=== PATIENT | male | born 1945 | race Caucasian/White ===

== ENCOUNTER → 2025-02-21 | Outpatient (CLI) | payer MEDICARE, SELFPAY ==
--- OUTSIDE RECORDS SUMMARY | 2025-02-21 07:26 | XMS RPT_ITS | CCD ---
Author Organization [facility] Care Team Providers Care Vascular Technologist Sonographer Name Role Phone Deb, April Primary Care Unavailable Stencel, April Attending Unavailable Stencel, April Primary Care Unavailable Stencel, April Admitting Unavailable Stencel, April Attending Unavailable Stencel, April Primary Care Unavailable Ohsie-Bajor, Miriam Admitting Unavailable Ohsie-Bajor, Miriam Attending Unavailable Stencel, April Primary Care Unavailable Stencel, April Attending Unavailable Stencel, April Primary Care Unavailable Stencel, April Admitting Unavailable Stencel, April Attending Unavailable Stencel, April Primary Care Unavailable Stencel, April Attending Unavailable Stencel, April Primary Care Unavailable Stencel, April Attending Unavailable Stencel, April Primary Care Unavailable Stencel, April Unavailable Unavailable Stencel, April West Unavailable Unavailable Stencel, April Walker Primary Care Provider DAVE BRYANT Attending Unavailable STENCEL, APRIL WALKER Primary Care Unavailab le DAVE BRYANT Admitting Unavailable DAVE BRYANT Referring Unavailable STENCEL, APRIL WALKER Primary Care Unavailab le Stensamuel, April Walker Primary Care Provider [phone] StenApril baker Unavailable [phone] Unavailable Unavailable Unavailable Unavailable April Boyd MD Primary Care Provider April Boyd MD Unavailable Deb, Dr. April Walker Primary Care Unava ilable Stencel, Dr. April Walker Attending Unava ilable Stencel, Dr. April Walker Referring Unava ilable Stencel, Dr. April Walker Referring Unava ilable Stencel, Dr. April Walker Attending Unava ilable Stencel, Dr. April Walker Primary Care Unava ilable Stencel, Dr. April Walker Primary Care Unava ilable Gholam, Jose Attending Unavailable Deb, Dr. April Walker Referring Sandeeva APRIL Paz Primary Care Unavailable APRIL BOYD Primary Care Unavailable April Boyd MD Unavailable April Boyd MD Primary Care Provider [phone] April Boyd MD Unavailable [phone] April Boyd MD Primary Care Provider [phone] APRIL BOYD Primary Care Unavailable PASHA ZABALA Attending Unavailable DEB, APRIL West Attending Unavailable DEB, APRIL West Referring Unavailable APRIL BOYD Primary Care Unavailable APRIL BOYD Attending Unavailable APRIL BOYD Referring Unavailable APRIL BOYD Primary Care Unavailable April Boyd Referring Unavailable April Boyd Unavailable April Boyd Primary Care Unavailable Allergies Allergy Classification Reported Allergen(s) Allergy Type Date of Onset Reaction(s) Facility Angiotensin Converting Enzyme (JUSTIN) Inhibitors (1 source) Lisinopril; Translations: [lisinopril] Drug All[facility] Work Phone: (15 sources) Lisinopril; Translations: [lisinopril] Drug Allergy 11-23-[address] [facility] Repository Medications Current Medications Medication Drug Class(es) Dates Sig (Normalized) Sig (Original) aspirin 325 mg oral tablet (14 sources) Platelet Aggregation Inhibitor, Nonsteroidal Anti-inflammatory Drug take 1 tablet by mouth once daily aspirin 325 mg tablet Take 1 tablet (325 mg) by mouth once daily. Active azithromycin 250 mg oral tablet (2 sources) Macrolide Antimicrobial Start: 01-06-20 End: 02-07-20 25 azithromycin (Zithromax Z-Adan) 250 mg tablet Indications: Acute bronchitis, unspecified organism Take 2 tablets by mouth at once on day 1, then 1 tablet once a day on days 2-5. Take with a meal. 6 tablet 01/05/2025 02/06/2025 Discontinued (Therapy completed) hydroCHLOROthiazide 25 mg oral tablet (16 sources) Thiazide Diuretic Start: 11-24-19 End: 08-09-19 26 take 1 tablet by mouth once daily hydroCHLOROthiazide (HYDRODiuril) 25 mg tablet Indications: Primary hypertension Take 1 tablet (25 mg) by mouth once daily. 90 tablet 3 08/09/2024 08/09/2025 Active mupirocin 0.02 mg/mg topical ointment (1 source) RNA Synthetase Inhibitor Antibacterial Start: 01-06-20 End: 01-16-20 mupirocin (Bactroban) 2 % ointment Indications: Abrasion Apply 1 Application topically 3 times a day for 10 days. 15 g 01/05/2025 01/15/2025 Active pantoprazole 40 mg delayed release oral tablet (18 sources) Proton Pump Inhibitor Start: 07-30-19 End: 08-09-19 take 1 tablet by mouth once daily pantoprazole (ProtoNix) 40 mg EC tablet Indications: Gastroesophageal reflux disease without esophagitis Take 1 tablet (40 mg) by mouth once daily. 90 tablet 3 08/09/2024 08/09/2025 Active potassium chloride 10 meq extended release oral tablet (9 sources) Start: 08-10-19 End: 08-10-19 take 1 tablet by mouth once daily potassium chloride CR 10 mEq ER tablet Indications: Primary hypertension Take 1 tablet (10 mEq) by mouth once daily. Do not crush, chew, or split. 90 tablet 3 08/10/2024 08/10/2025 Active Start: 01-20-2022 End: 08-01-2024 take 1 tablet by mouth once daily potassium chloride CR 10 mEq ER tablet Indications: Primary hypertension Take 1 tablet (10 mEq) by mouth once daily. 90 tablet 3 08/02/2023 08/01/2024 Active predniSONE 10 mg oral tablet (1 source) Start: 02-06-2025 End: 02-11-2025 take 4 tablets by mouth once daily predniSONE (Deltasone) 10 mg tablet Indications: Bronchitis Take 4 tablets (40 mg) by mouth once daily for 5 days. 20 tablet 02/06/2025 02/11/2025 Active simvastatin 40 mg oral tablet (18 sources) HMG-CoA Reductase Inhibitor Start: 07-30-2017 End: 08-09-2025 take 1 tablet by mouth once daily simvastatin (Zocor) 40 mg tablet Indications: Combined hyperlipidemia Take 1 tablet (40 mg) by mouth once daily. 90 tablet 3 08/09/2024 08/09/2025 Active 12 hr timolol 5 mg/ml ophthalmic solution (16 sources) beta-Adrenergic Linda Start: 11-07-2019 timolol (TIMOPTIC) 0.5 % ophthalmic solution Start: 12-31-2016 timolol (Timop tic) 0.5 % ophthalmic solution Administer into affected eye(s). 12/31/2016 Active Start: 12-31-2016 Timolol Maleat e 0.5 % Ophthalmic Solution Quantity: 5 Refills: 0 Ordered: 31-Dec-2016 DO Start : 31-Dec-2016 Active vit C/E/cuperic/zinc/lutein (PRESERVISION LUTEIN ORAL) (6 sources) vit C/E/cuperic/ zinc/lutein (PRESERVISION LUTEIN ORAL) Take by mouth. Active vit C/E/cuperic/ zinc/lutein (PRESERVISION LUTEIN ORAL) Take by mouth. 0 Active zolpidem tartrate 10 mg oral tablet (7 sources) gamma-Aminobutyric Acid-ergic Agonist Start: 01-28-2021 End: 08-02-2023 zolpidem (Ambien) 10 mg tablet Take 1 tablet (10 mg) by mouth as needed at bedtime for sleep. 0 01/28/2021 08/02/2023 Discontinued (Therapy completed) Completed/Discontinued Medications Medication Drug Class(es) Dates Sig (Normalized) Sig (Original) Multi-Vitamin Oral Tablet (5 sources) Start: 07-31-2021 Multi-Vitamin Oral Tablet Quantity: 0 Refills: 0 Ordered: 31-Jul-2021 April Boyd MD Start : 31-Jul-2021 Active Problems Active Problems Problem Classification Problem Date Documented Date Episodic/Chronic Acute bronchitis (3 sources) Acute bronchitis; Translations: [Acute bronchitis, unspecified] Onset: 01-05-2025 01-05-2025 Episodic Cataract (20 sources) Combined form of senile cataract; 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, right eye] Onset: 01-25-2023 01-25-2023 Chronic Chronic obstructive pulmonary disease and bronchiectasis (3 sources) Bronchitis; Translations: [Bronchitis, not specified as acute or chronic] Onset: 02-06-2025 02-06-2025 Episodic Diabetes mellitus without complication (20 sources) Impaired glucose tolerance; Translations: [Impaired glucose tolerance test (oral)] Onset: 01-25-2023 01-25-2023 Episodic Disorders of lipid metabolism (20 sources) Hyperlipidemia; Translations: [Mixed hyperlipidemia] Onset: 01-25-2023 Resolved: 01-26-2023 01-26-2023 Chronic Esophageal disorders (20 sources) Gastroesophageal reflux disease; Translations: [Esophageal reflux] Onset: 01-25-2023 01-26-2023 Chronic Essential hypertension (20 sources) Hypertensive disorder; Translations: [Unspecified essential hypertension] Onset: 01-25-2023 01-26-2023 Chronic Glaucoma (14 sources) Unspecified open-angle glaucoma, mild stage; Translations: [Open-angle glaucoma of left eye] Onset: 01-25-2023 01-25-2023 Chronic Hepatitis (20 sources) Steatohepatitis; Translations: [Nonalcoholic steatohepatitis (ANTONIO)] Onset: 01-26-2023 01-26-2023 Chronic Miscellaneous mental health disorders (2 sources) Primary insomnia; Translations: [Primary insomnia] 01-26-2023 Chronic Osteoarthritis (1 source) Primary gonarthrosis, bilateral; 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] Chronic Other injuries and conditions due to external causes (1 source) Abrasion; Translations: [Other injury of unspecified body region, initial encounter] 01-05-2025 Episodic Other injuries and conditions due to external causes (2 sources) Other injury of unspecified body region, initial encounter; Translations: [Other injury of unspecified body region, initial encounter] Onset: 01-05-2025 Episodic Other nervous system disorders (8 sources) Personal history of other diseases of the nervous system and sense organs; Translations: [H/O: glaucoma] Episodic Other nutritional; endocrine; and metabolic disorders (5 sources) Body mass index 30+ - obesity; Translations: [Body Mass Index 38.0-38.9, adult] Chronic Other nutritional; endocrine; and metabolic disorders (2 sources) Obesity; Translations: [Obesity, unspecified] Chronic Other nutritional; endocrine; and metabolic disorders (6 sources) Morbid obesity; Translations: [Morbid (severe) obesity due to excess calories] Onset: 02-07-2024 02-07-2024 Chronic Other nutritional; endocrine; and metabolic disorders (2 sources) Morbid (severe) obesity due to excess calories; Translations: [Morbid (severe) obesity due to excess calories (Multi)] Onset: 02-07-2024 Chronic Other nutritional; endocrine; and metabolic disorders (8 sources) H/O: metabolic disorder; Translations: [Personal history of other endocrine, metabolic, and immunity disorders] Episodic Other upper respiratory disease (4 sources) Allergic rhinitis due to pollen; Translations: [Allergic rhinitis due to pollen] Onset: 02-07-2024 02-07-2024 Chronic Residual codes; unclassified (7 sources) History finding; Translations: [Other specified conditions influencing health status] Episodic Retinal detachments; defects; vascular occlusion; and retinopathy (14 sources) Nonexudative age-related macular degeneration; Translations: [Nonexudative senile macular degeneration] Onset: 01-25-2023 01-25-2023 Chronic Unclassified (2 sources) Patient encounter status; Translations: [Screening for prostate cancer] 02-06-2025 Past or Other Problems Problem Classification Problem Date Documented Da te Episodic/Chronic Blindness and vision defects (20 sources) Myopia; Translations: [Astigmatism] Onset: 01-25-2023 01-25-2023 Episodic Other and unspecified benign neoplasm (14 sources) Tubular adenoma of colon; Translations: [Benign neoplasm of colon] Onset: 01-25-2023 01-25-2023 Episodic Other screening for suspected conditions (not mental disorders or infectious disease) (20 sources) Patient encounter status; Translations: [Screening for malignant neoplasms of prostate] Onset: 01-25-2023 01-26-2023 Episodic Residual codes; unclassified (14 sources) Amnesia; 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] Onset: 01-25-2023 01-25-2023 Episodic Comment on above: HX TRANSIENT GLOBAL ANMESIA 08-27-10; Residual codes; unclassified (13 sources) Insomnia; Translations: [Insomnia, unspecified] Onset: 01-25-2023 01-25-2023 Episodic Unclassified (1 source) History finding; Translations: [History of No pertinent past surgical history] Unclassified (6 sources) Onset: 01-26-2023 Resolved: 02-06-2025 01-26-2023 NEGATED: Highlighted row has not occurred!Residual codes; unclassified (2 sources) Disease Episodic Results Test Name Value Interpretation Reference Range Facility CBC (H/H, RBC, INDICES, WBC, PLT)on 01-31-2025 Erythrocyte distribution width (RBC) [Ratio] 13.2 % Normal 11.0-15.0 [facility] Comment on above: Performed By: #### [id number], 1758, 7600, 16 802, 5363 #### [facility] of [address], [address] [place] [address] Director Hair: Elvin Lyon MD Hematocrit (Bld) [Volume fraction] 50.6 % High 38.5-50.0 [facility] Comment on above: Performed By: #### 71861, 1758, 0, 16 802, 5363 #### [facility] of [place] [address] Director Hair: Elvin Lyon MD Hemoglobin (Bld) [Mass/Vol] 16.9 g/dL Normal 13.2-17.1 [facility] Comment on above: Performed By: #### 90437, 1758, 7600, 16 802, 5363 #### [facility] of [place] [address] Director Hair: Elvin Lyon MD MCH (RBC) [Entitic mass] 33.9 pg High 27.0-33.0 [facility] Comment on above: Performed By: #### 85953, 1758, 7599, 16 802, 5363 #### [facility] of [place] [address] Director Hair: Elvin Lyon MD MCHC (RBC) [Mass/Vol] 33.4 g/dL Normal 32.0-36.0 [facility] Comment on above: Result Comment: For adults, a slight dec rease in the calculated MCHC value (in the range of 30 to 32 g/dL) is most likely not clinically significant; however, it should be interpreted with caution in correlation with other red cell parameters and the patient's clinical condition. Performed By: #### 9 2665, 1759, 7600, 93791, 5363 #### [facility] of [place] [address] Director Hair: Elvin Lyon MD MCV (RBC) [Entitic vol] 101.4 fL High 80.0-100.0 [facility] Comment on above: Performed By: #### 97353, 1758, 7600, 16 802, 5363 #### [facility] of [place] [address] Director Hair: Elvin Lyon MD Platelet mean volume (Bld) [Entitic vol] 10.4 fL Normal 7.5-12.5 [facility] Comment on above: Performed By: #### 16171, 1758, 7600, 16 802, 5363 #### [facility] of [address], [address] [place] [address] Director Hair: Elvin Lyon MD Platelets (Bld) [#/Vol] 255 10*3/uL Normal 140-400 [facility] Comment on above: Performed By: #### 56115, 1758, 0, 16 802, 5363 #### [facility] of [address], [address] [place] [address] Director Hair: Elvin Lyon MD RBC (Bld) [#/Vol] 4.99 10*6/uL Normal 4.20-5.80 [facility] Comment on above: Performed By: #### 49533, 1758, 7600, 16 802, 5363 #### [facility] of [place] [address] Director Hair: Elvin Lyon MD WBC (Bld) [#/Vol] 6.0 10*3/uL Normal 3.8-10.8 [facility] Comment on above: Performed By: #### 71432, 1758, 7600, 16 802, 5363 #### [facility] of [place] [address] Director Hair: Elvin Lyon MD COMPREHENSIVE METABOLIC PANE L W/ANION GAPon 01-31-2025 Albumin [Mass/Vol] 4.4 g/dL Normal 3.6-5.1 [facility] Comment on above: Performed By: #### 05377, 1759, 7600, 16 802, 5363 #### [facility] of [address], [address] [place] [address] Director Hair: Elvin Lyon MD ALP [Catalytic activity/Vol] 50 U/L Normal 35-144 [facility] Comment on above: Performed By: #### 91005, 1758, 7600, 16 802, 5363 #### [facility] of [address], [address] [place] [address] Director Hair: Elvin Lyon MD ALT [Catalytic activity/Vol] 65 U/L High 9-46 [facility] Comment on above: Performed By: #### 74107, 1758, 7600, 16 802, 5363 #### [facility] of [address], [address] [place] [address] Director Hair: Elvin Lyon MD AST [Catalytic activity/Vol] 58 U/L High 10-35 [facility] Comment on above: Performed By: #### 21260, 175, 7600, 16 802, 5363 #### [facility] of [address], [address] [place] [address] Director Hair: Elvin Lyon MD Bilirubin [Mass/Vol] 1.5 mg/dL High 0.2-1.2 [facility] Comment on above: Performed By: #### 47046, 1758, 7600, 16 802, 5363 #### [facility] of [address], [address] [place] [address] Director Hair: Elvin Lyon MD Calcium [Mass/Vol] 10.0 mg/dL Normal 8.6-10.3 [facility] Comment on above: Performed By: #### 60428, 1758, 7600, 16 802, 5363 #### [facility] of [address], [address] [place] [address] Director Hair: Elvin Lyon MD Chloride [Moles/Vol] 102 mmol/L Normal 98-110 [facility] Comment on above: Performed By: #### 67965, 175, 7600, 16 802, 5363 #### [facility] [address] [place] [address], [address] [place] [address] Director Hair: Elvin Lyon MD CO2 [Moles/Vol] 25 mmol/L Normal 20-32 [facility] Comment on above: Performed By: #### 89991, 175, 7600, 16 802, 5363 #### [facility] [address] [place] [address], [address] [place] [address] Director Hair: Elvin Lyon MD Creatinine [Mass/Vol] 0.94 mg/dL Normal 0.70-1.28 [facility] Comment on above: Performed By: #### 46848, 1758, 7600, 16 802, 5363 #### [facility] [address] [place] [address], [address] [place] [address] Director Hair: Elvin Lyon MD ELECTROLYTE BALANCE 11 mmol/L (calc) Normal 7-17 [facility] Comment on above: Performed By: #### 92367, 175, 7600, 16 802, 5363 #### [facility] [place] [address] Director Hair: Elvin Lyon MD GFR/1.73 sq M.predicted among non-blacks MDRD (S/P/Bld) [Vol rate/Area] 83 mL/min/{1.73_m2} Normal > OR = 60 [facility] Comment on above: Performed By: #### 47528, 1758, 7600, 16 802, 5363 #### [facility] of [address], [address] [place] [address] Director Hair: Elvin Lyon MD Glucose [Mass/Vol] 124 mg/dL High 65-99 [facility] Comment on above: Result Comment: Fasting reference interval For someone without known diabetes, a glucose value between 100 and 125 mg/dL is consistent with prediabetes and should be confirmed with a follow-up test. Performed By: #### 9 2665, 1759, 7600, 57693, 5363 #### [facility] [place] [address] Director Hair: Elvin Lyon MD Potassium [Moles/Vol] 4.1 mmol/L Normal 3.5-5.3 [facility] Comment on above: Performed By: #### 48779, 175, 7600, 16 802, 5363 #### [facility] [place] [address] Director Hair: Elvin Lyon MD Protein [Mass/Vol] 7.6 g/dL Normal 6.1-8.1 [facility] Comment on above: Performed By: #### 03285, 175, 7600, 16 802, 5363 #### [facility] [place] [address] Director Hair: Elvin Lyon MD Sodium [Moles/Vol] 138 mmol/L Normal 135-146 [facility] Comment on above: Performed By: #### 12749, 1758, 7600, 16 802, 5363 #### [facility] [place] [address] Director Hair: Elvin Lyon MD Urea nitrogen [Mass/Vol] 12 mg/dL Normal 7-25 [facility] Comment on above: Performed By: #### 77211, 175, 7600, 16 802, 5363 #### [facility] of [place] [address] Director Hair: Elvin Lyon MD HEMOGLOBIN A1c WITH eAGon eAG (mmol/L) 7.1 mmol/L Normal [facility] Comment on above: Performed By: #### 36838, 175, 7600, 16 802, 5363 #### [facility] of [place] [address] Director Hair: Elvin Lyon MD HbA1c (Bld) [Mass fraction] 6.1 % High <5.7 [facility] Comment on above: Result Comment: For someone without know n diabetes, a hemoglobin A1c value between 5.7% and 6.4% is consistent with prediabetes and should be confirmed with a follow-up test. For someone with known diabetes, a value <7% indicates that their diabetes is well controlled. A1c targets should be individualized based on duration of diabetes, age, comorbid conditions, and other considerations. This assay result is consistent with an increased risk of diabetes. Currently, no consensus exists regarding use of hemoglobin A1c for diagnosis of diabetes for children. Performed By: #### 9 2665, 1759, 7600, 06057, 5363 #### [facility] [address] [place] [address], [address] [place] [address] Director Hair: Elvin Lyon MD Magnesium [Mass/Vol] 128 mg/dL Normal [facility] Comment on above: Performed By: #### 76485, 1759, 7600, 16 802, 5363 #### [facility] [address] [place] [address], [address] [place] [address] Director Hair: Elvin Lyon MD LIPID PANEL, [place] [address] Cholesterol [Mass/Vol] 169 mg/dL Normal <200 [facility] Comment on above: Order Comment: FASTING:YES FASTING: YES Performed By: #### 9 2665, 1759, 7600, 96230, 5363 #### [facility] [address] [place] [address], [address] [place] [address] Director Hair: Elvin Lyon MD Cholesterol in HDL [Mass/Vol] 32 mg/dL Low > OR = 40 [facility] Comment on above: Order Comment: FASTING:YES FASTING: YES Performed By: #### 9 2665, 1759, 7600, 62172, 5363 #### [facility] [address] [place] [address], [address] [place] [address] Director Hair: Elvin Lyon MD Cholesterol in LDL [Mass/Vol] 100 mg/dL High [facility] Comment on above: Order Comment: FASTING:YES FASTING: YES Result Comment: Refe rence range: <100 Desirable range <100 mg/dL for primary prevention; <70 mg/dL for patients with CHD or diabetic patients with > or = 2 CHD risk factors. LDL-C is now calculated using the Stanton-Valdez calculation, which is a validated novel method providing better accuracy than the Friedewald equation in the estimation of LDL-C. Stanton SS et al. ALLYSON. 2013;310(19): 7734-1581 (http://education.[facility]/faq/IVW793) Performed By: #### 9 0085, 1759, 7600, 13906, 5363 #### [facility] [address] [place] [address], [address] [place] [address] Director Hair: Elvin Lyon MD Cholesterol.tota l/Cholesterol in HDL [Mass ratio] 5.3 {ratio} High <5.0 [facility] Comment on above: Order Comment: FASTING:YES FASTING: YES Performed By: #### 9 0495, 1759, 7600, 17563, 5363 #### [facility] [address] [place] [address], [address] [place] [address] Director Hair: Elvin Lyon MD NON HDL CHOLESTEROL 137 mg/dL (calc) High <130 [facility] Comment on above: Order Comment: FASTING:YES FASTING: YES Result Comment: For patients with diabetes plus 1 major ASCVD risk factor, treating to a non-HDL-C goal of <100 mg/dL (LDL-C of <70 mg/dL) is considered a therapeutic option. Performed By: #### 9 4965, 1759, 7600, 96698, 5363 #### [facility] [address] [place] [address], [address] [place] [address] Director Hair: Elvin Lyon MD Triglyceride [Mass/Vol] 246 mg/dL High <150 [facility] Comment on above: Order Comment: FASTING:YES FASTING: YES Result Comment: If a non-fasting specimen was collected, consider repeat triglyceride testing on a fasting specimen if clinically indicated. Lynsey et al. J. of Clin. Lipidol. 2015;9:129-169. Performed By: #### 9 1465, 1759, 7600, 67381, 5363 #### [facility] [address] [place] [address], [address] [place] [address] Director Hair: Elvin Lyon MD PSA, TOTALon 01-31-2025 PSA, TOTAL 1.87 ng/mL Normal < OR = 4.00 [facility] Comment on above: Result Comment: The total PSA value from this assay system is standardized against the WHO standard. The test result will be approximately 20% lower when compared to the equimolar-standardized total PSA (Dragan Prudence). Comparison of serial PSA results should be interpreted with this fact in mind. This test was performed using the Siemens chemiluminescent method. Values obtained from different assay methods cannot be used interchangeably. PSA levels, regardless of value, should not be interpreted as absolute evidence of the presence or absence of disease. Performed By: #### 9 2665, 1759, 7600, 32398, 5363 #### [facility] [address] [facility], [address] [place] [address] Director Hair: Elvin Lyon MD CBC panel Auto (Bld)on 08-01 Erythrocyte distribution width (RBC) [Ratio] 12.4 % Normal 11.5-14.5 [facility] Comment on above: Performed By: #### 99980-2 #### YE HUMPHREYS ([id number]) [facility] ([facility]) [address] [place] [address] Hematocrit (Bld) [Volume fraction] 51.8 % Normal 41.0-52.0 [facility] Comment on above: Performed By: #### 87154-5 #### YE HUMPHREYS ([id number]) [facility] ([facility]) [address] [place] [address] 18063 Hemoglobin (Bld) [Mass/Vol] 17.5 g/dL Normal 13.5-17.5 [facility] Comment on above: Performed By: #### 89116-3 #### YE HUMPHREYS ([id number]) [facility] ([facility]) [address] [place] [address] 40704 MCH (RBC) [Entitic mass] 33.5 pg Normal 26.0-34.0 [facility] Comment on above: Performed By: #### 68516-3 #### YE HUMPHREYS ([id number]) [facility] ([facility]) [address] [place] [address]1285 MCHC (RBC) [Mass/Vol] 33.8 g/dL Normal 32.0-36.0 [facility] Comment on above: Performed By: #### 37754-6 #### YE HUMPHREYS ([id number]) [facility] ([facility]) [address] [place] [address] 86692 MCV (RBC) [Entitic vol] 99 fL Normal 80-100 [facility] Comment on above: Performed By: #### 73320-4 #### YE HUMPHREYS (69047) [facility] ([facility]) [address] [place] [address] 70777 Nucleated RBC/100 WBC (Bld) [Ratio] 0.0 /100 WBCs Normal 0.0-0.0 [facility] Comment on above: Performed By: #### 66462-6 #### YE HUMPHREYS (87551) [facility] ([facility]) [address] [place] [address] 92807 Platelets (Bld) [#/Vol] 239 x10*3/uL Normal 150-450 [facility] Comment on above: Performed By: #### 45065-4 #### YE HUMPHREYS (25488) [facility] ([facility]) [address] [place] [address] 67604 RBC (Bld) [#/Vol] 5.23 x10*6/uL Normal 4.50-5.90 [facility] Comment on above: Performed By: #### 74488-3 #### YE HUMPHREYS (96511) [facility] ([facility]) [address] [place] [address] 38279 WBC (Bld) [#/Vol] 5.9 x10*3/uL Normal 4.4-11.3 [facility] Comment on above: Performed By: #### 79675-5 #### YE HUMPHREYS (84764) [facility] ([facility]) [address] [place] [address] 41055 Comprehensive metabolic 2000 panelon 08-01-2024 Albumin BCP dye [Mass/Vol] 4.4 g/dL Normal 3.4-5.0 [facility] Comment on above: Performed By: #### 40358-8 #### YE HUMPHREYS (89511) [facility] ([facility]) [address] [place] [address] 89494 ALP [Catalytic activity/Vol] 49 U/L Normal 33-136 [facility] Comment on above: Performed By: #### 45632-9 #### YE HUMPHREYS ([id number]) [facility] ([facility]) [address] [place] [address] 56097 ALT With P-5'-P [Catalytic activity/Vol] 98 U/L High 10-52 [facility] Comment on above: Result Comment: Patients treated with [place] lfasalazine may generate falsely decreased results for ALT. Performed By: #### 2 4323-8 #### YE HUMPHREYS (62838) [facility] ([facility]) [address] [place] [address] 52582 Anion gap [Moles/Vol] 11 mmol/L Normal 10-20 [facility] Comment on above: Performed By: #### 80131-3 #### YE HUMPHREYS (25579) [facility] ([facility]) [address] [place] [address] 89767 AST With P-5'-P [Catalytic activity/Vol] 63 U/L High 9-39 [facility] Comment on above: Performed By: #### 94078-2 #### YE HUMPHREYS (09305) [facility] ([facility]) [address] [place] [address] 83343 Bilirubin [Mass/Vol] 1.3 mg/dL High 0.0-1.2 [facility] Comment on above: Performed By: #### 04739-7 #### YE HUMPHREYS (86122) [facility] ([facility]) [address] [place] [address] 69645 Calcium [Mass/Vol] 10.3 mg/dL Normal 8.6-10.3 [facility] Comment on above: Performed By: #### 73886-6 #### YE HUMPHREYS (03210) [facility] ([facility]) [address] [place] [address] 55954 Chloride [Moles/Vol] 102 mmol/L Normal 98-107 [facility] Comment on above: Performed By: #### 35921-3 #### YE HUMPHREYS (38121) [facility] ([facility]) [address] [place] [address] 95592 CO2 [Moles/Vol] 32 mmol/L Normal 21-32 [facility] Comment on above: Performed By: #### 53669-9 #### YE HUMPHREYS (73266) [facility] ([facility]) [address] [place] [address] 02074 Creatinine [Mass/Vol] 1.02 mg/dL Normal 0.50-1.30 [facility] Comment on above: Performed By: #### 00750-1 #### YE HUMPHREYS (63134) [facility] ([facility]) [address] [place] [address] 82507 Glomerular filtration rate/1.73 sq M.predicted 76 mL/min/1.73m*2 Normal >60 [facility] Comment on above: Result Comment: Calculations of estimate d GFR are performed using the 2020 CKD-EPI Study Refit equation without the race variable for the IDMS-Traceable creatinine methods. https://jasn.asnjournals.org/content/early//ASN.1169651462 Performed By: #### 2 4323-8 #### YE HUMPHREYS (73976) [facility] ([facility]) [address] [place] [address] 21429 Glucose [Mass/Vol] 135 mg/dL High 74-99 [facility] Comment on above: Performed By: #### 68467-8 #### YE HUMPHREYS (96271) [facility] ([facility]) [address] [place] [address] 28684 Potassium [Moles/Vol] 3.9 mmol/L Normal 3.5-5.3 [facility] Comment on above: Performed By: #### 54454-7 #### YE HUMPHREYS (20746) [facility] ([facility]) [address] [place] [address] 75669 Protein [Mass/Vol] 7.3 g/dL Normal 6.4-8.2 [facility] Comment on above: Performed By: #### 67384-7 #### YE HUMPHREYS (41530) [facility] ([facility]) [address] [place] [address] 61964 Sodium [Moles/Vol] 141 mmol/L Normal 136-145 [facility] Comment on above: Performed By: #### 91032-2 #### YE HUMPHREYS (83212) [facility] ([facility]) [address] [place] [address] 87359 Urea nitrogen [Mass/Vol] 15 mg/dL Normal 6-23 [facility] Comment on above: Performed By: #### 13163-9 #### YE HUMPHREYS (60843) [facility] ([facility]) [address] [place] [address] 15224 CBC panel Auto (Bld)on 01-30 Erythrocyte distribution width (RBC) [Ratio] 12.6 % Normal 11.5-14.5 [facility] Comment on above: Performed By: #### 77336-3 #### YE HUMPHREYS (44724) [facility] ([facility]) [address] [place] [address] 76619 Hematocrit (Bld) [Volume fraction] 49.1 % Normal 41.0-52.0 [facility] Comment on above: Performed By: #### 48557-6 #### YE HUMPHREYS (77078) [facility] ([facility]) [address] [place] [address] 58195 Hemoglobin (Bld) [Mass/Vol] 16.8 g/dL Normal 13.5-17.5 [facility] Comment on above: Performed By: #### 64259-0 #### YE HUMPHREYS (89599) [facility] ([facility]) [address] [place] [address] 82503 MCH (RBC) [Entitic mass] 34.1 pg High 26.0-34.0 [facility] Comment on above: Performed By: #### 18383-0 #### YE HUMPHREYS (44829) [facility] ([facility]) [address] [place] [address] 58289 MCHC (RBC) [Mass/Vol] 34.2 g/dL Normal 32.0-36.0 [facility] Comment on above: Performed By: #### 05687-4 #### YE HUMPHREYS (37246) [facility] ([facility]) [address] [place] [address] 59900 MCV (RBC) [Entitic vol] 100 fL Normal 80-100 [facility] Comment on above: Performed By: #### 72376-3 #### YE HUMPHREYS (40910) [facility] ([facility]) [address] [place] [address] Nucleated RBC/100 WBC (Bld) [Ratio] 0.0 /100 WBCs Normal 0.0-0.0 [facility] Comment on above: Performed By: #### 19886-4 #### YE HUMPHREYS (29473) [facility] ([facility]) [address] [place], [place] [address] Platelets (Bld) [#/Vol] 220 x10*3/uL Normal 150-450 [facility] Comment on above: Performed By: #### 89563-7 #### YE HUMPHREYS (07758) [facility] ([facility]) [address] [place] [address] 40561 RBC (Bld) [#/Vol] 4.93 x10*6/uL Normal 4.50-5.90 [facility] Comment on above: Performed By: #### 53665-6 #### YE HUMPHREYS (43152) [facility] ([facility]) [address] [place] [address] 11892 WBC (Bld) [#/Vol] 5.8 x10*3/uL Normal 4.4-11.3 [facility] Comment on above: Performed By: #### 06343-3 #### YE HUMPHREYS (49271) [facility] ([facility]) [address] [place] [address] Comprehensive metabolic 2000 panelon 01-31-2024 Albumin BCP dye [Mass/Vol] 4.3 g/dL Normal 3.4-5.0 [facility] Comment on above: Performed By: #### 25239-4 #### YE HUMPHREYS (93999) [facility] ([facility]) [address] [place] [address] ALP [Catalytic activity/Vol] 49 U/L Normal 33-136 [facility] Comment on above: Performed By: #### 75218-9 #### YE HUMPHREYS (81394) [facility] ([facility]) [address] [place] [address] ALT With P-5'-P [Catalytic activity/Vol] 81 U/L High 10-52 [facility] Comment on above: Result Comment: Patients treated with [place] lfasalazine may generate falsely decreased results for ALT. Performed By: #### 2 4323-8 #### YE HUMPHREYS (22341) [facility] ([facility]) [address] [place] [address] 93161 Anion gap [Moles/Vol] 11 mmol/L Normal 10-20 [facility] Comment on above: Performed By: #### 71085-9 #### YE HUMPHREYS (86608) [facility] ([facility]) [address] [place] [address] AST With P-5'-P [Catalytic activity/Vol] 55 U/L High 9-39 [facility] Comment on above: Performed By: #### 18862-9 #### YE HUMPHREYS (24626) [facility] ([facility]) [address] [place] [address] 03196 Bilirubin [Mass/Vol] 1.0 mg/dL Normal 0.0-1.2 [facility] Comment on above: Performed By: #### 96688-0 #### YE HUMPHREYS (68639) [facility] ([facility]) [address] [place] [address] 34997 Calcium [Mass/Vol] 9.8 mg/dL Normal 8.6-10.3 [facility] Comment on above: Performed By: #### 85868-2 #### YE HUMPHREYS (39820) [facility] ([facility]) [facility] [place] [address] Chloride [Moles/Vol] 103 mmol/L Normal 98-107 [facility] Comment on above: Performed By: #### 02509-1 #### YE HUMPHREYS (75701) [facility] ([facility]) [address] [place] [address] 32778 CO2 [Moles/Vol] 29 mmol/L Normal 21-32 [facility] Comment on above: Performed By: #### 43105-1 #### YE HUMPHREYS (16017) [facility] ([facility]) [address] [place] [address] 44081 Creatinine [Mass/Vol] 1.03 mg/dL Normal 0.50-1.30 [facility] Comment on above: Performed By: #### 96617-9 #### YE HUMPHREYS (47288) [facility] ([facility]) [address] [place] [address] 52148 Glomerular filtration rate/1.73 sq M.predicted 75 mL/min/1.73m*2 Normal >60 [facility] Comment on above: Result Comment: Calculations of estimate d GFR are performed using the 2020 CKD-EPI Study Refit equation without the race variable for the IDMS-Traceable creatinine methods. https://jasn.asnjournals.org/content//ASN.1579146867 Performed By: #### 2 4323-8 #### YE HUMPHREYS (57267) [facility] ([facility]) [address] [place] [address] 33054 Glucose [Mass/Vol] 128 mg/dL High 74-99 [facility] Comment on above: Performed By: #### 54918-9 #### YE HUMPHREYS (93184) [facility] ([facility]) [address] [place] [address] 10028 Potassium [Moles/Vol] 3.7 mmol/L Normal 3.5-5.3 [facility] Comment on above: Performed By: #### 38752-1 #### YE HUMPHREYS (63204) [facility] ([facility]) [address] [place] [address] 59889 Protein [Mass/Vol] 7.0 g/dL Normal 6.4-8.2 [facility] Comment on above: Performed By: #### 03397-9 #### YE HUMPHREYS (64678) [facility] ([facility]) [address] [place] [address] 03674 Sodium [Moles/Vol] 139 mmol/L Normal 136-145 [facility] Comment on above: Performed By: #### 26834-0 #### YE HUMPHREYS (42685) [facility] ([facility]) [address] [place] [address] 88959 Urea nitrogen [Mass/Vol] 12 mg/dL Normal 6-23 [facility] Comment on above: Performed By: #### 74603-3 #### YE HUMPHREYS (43977) [facility] ([facility]) [address] [place] [address] 39666 HbA1c (Bld) [Mass fraction]o n 01-31-2024 Average glucose Estimated from glycated hemoglobin (Bld) [Mass/Vol] 128 mg/dL Normal Not Established [facility] Comment on above: Order Comment: Diagnosis of Diabetes-Diego lts Non-Diabetic: < or = 5.6% Increased risk for developing diabetes: 5.7-6.4% Diagnostic of diabetes: > or = 6.5% Performed By: #### 4 548-4 #### YE HUMPHREYS (33142) [facility] ([facility]) [address] [place] [address] 02500 Hemoglobin A1c/Hemoglobin.to srinath 01-31-2024 HbA1c (Bld) [Mass fraction] 6.1 % High see below [facility] Comment on above: Order Comment: Diagnosis of Diabetes-Diego lts Non-Diabetic: < or = 5.6% Increased risk for developing diabetes: 5.7-6.4% Diagnostic of diabetes: > or = 6.5% Performed By: #### 4 548-4 #### YE HUMPHREYS (68752) [facility] ([facility]) [address] [place] [address] Lipid 1996 panelon 4 Cholesterol [Mass/Vol] 154 mg/dL Normal 0-199 [facility] Comment on above: Result Comment: Age Desirable Borderline High High 0-19 Y 0 - 169 170 - 199 >/= 200 20-24 Y 0 - 189 190 - 224 >/= 225 >24 Y 0 - 199 200 - 239 >/= 240 All ranges are based on fasting samples. Specific therapeutic targets will vary based on patient-specific cardiac risk. Pediatric guidelines reference:Pediatrics 2011, 128(S5).Adult guidelines reference: NCEP ATPIII Guidelines,ALLYSON 2001, 258:2486-97 Venipuncture immediately after or during the administration of Metamizole may lead to falsely low results. Testing should be performed immediately prior to Metamizole dosing. Performed By: #### 2 4331-1 #### YE HUMPHREYS (17135) [facility] ([facility]) [address] [place] [address] 79989 Cholesterol in HDL [Mass/Vol] 27.0 mg/dL Normal [facility] Comment on above: Result Comment: Age Very Low Low Normal High 0-19 Y < 35 < 40 40-45 ---- 20-24 Y ---- < 40 >45 ---- >24 Y ---- < 40 40-60 >60 Performed By: #### 2 4331-1 #### YE HUMPHREYS (49667) [facility] ([facility]) [address] [place] [address] 09345 Cholesterol in LDL [Mass/Vol] 83 mg/dL Normal <=99 [facility] Comment on above: Result Comment: Near Borderline AGE Desirable Optimal High High Very High 0-19 Y 0 - 109 --- 110-129 >/= 130 ---- 20-24 Y 0 - 119 --- 120-159 >/= 160 ---- >24 Y 0 - 99 100-129 130-159 160-189 >/=190 Performed By: #### 2 4331-1 #### YE HUMPHREYS (01996) [facility] ([facility]) [address] [place] [address] 06289 Cholesterol in VLDL [Mass/Vol] 44 mg/dL High 0-40 [facility] Comment on above: Performed By: #### 22863-4 #### YE HUMPHREYS (18928) [facility] ([facility]) [address] [place] [address] 75459 CHOLESTEROL/HDL RATIO 5.7 Normal [facility] Comment on above: Result Comment: Ref Values Desirable < 3.4 High Risk > 5.0 Performed By: #### 2 4331-1 #### YE HUMPHREYS (79528) [facility] ([facility]) [address] [place] [address] 05727 NON HDL CHOLESTEROL 127 mg/dL Normal 0-149 [facility] Comment on above: Result Comment: Age Desirable Borderline High High Very High 0-19 Y 0 - 119 120 - 144 >/= 145 >/= 160 20-24 Y 0 - 149 150 - 189 >/= 190 ---- >24 Y 30 mg/dL above LDL Cholesterol goal Performed By: #### 2 4331-1 #### YE HUMPHREYS (53797) [facility] ([facility]) [address] [place] [address] 18498 Triglyceride [Mass/Vol] 219 mg/dL High 0-149 [facility] Comment on above: Result Comment: Age Desirable Borderline High High Very High 0 D-90 D 19 - 174 ---- ---- ---- 91 D- 9 Y 0 - 74 75 - 99 >/= 100 ---- 10-19 Y 0 - 89 90 - 129 >/= 130 ---- 20-24 Y 0 - 114 115 - 149 >/= 150 ---- >24 Y 0 - 149 150 - 199 200- 499 >/= 500 Venipuncture immediately after or during the administration of Metamizole may lead to falsely low results. Testing should be performed immediately prior to Metamizole dosing. Performed By: #### 2 4331-1 #### YE HUMPHREYS (95041) [facility] ([facility]) [address] [place] [address] 44721 Prostate specific Agon 01-30 Prostate specific Ag [Mass/Vol] 2.04 ng/mL Normal <=4.00 [facility] Comment on above: Order Comment: The FDA requires that the method used for PSA assay be reported to the physician. Values obtained with different assay methods must not be used interchangeably. This test was performed at [facility] using the [employer] PSA assay is a two-site immunoenzymatic sandwich assay. The assay is approved for measurement of prostate-specific antigen (PSA)in serum and may be used in conjunction with a digital rectal examination in men 50 years and older as an aid in detection of prostate cancer. 1-Rnvfm-prgmoxsyw inhibitors (e.g. Proscar, Finasteride, Avodart, Dutasteride and Miriam) for the treatment of BPH have been shown to lower PSA levels by an average of 50% after 6 months of treatment. Performed By: #### 2 857-1 #### BELCHER JULIANN ([id number]) [facility] ([facility]) [address] [place] [address] Comprehensive metabolic 2000 panelon 08-02-2023 Albumin BCP dye [Mass/Vol] 4.3 g/dL 3.4 - 5.0 g/dL [facility] ALP [Catalytic activity/Vol] 44 U/L 33 - 136 U/L [facility] ALT With P-5'-P [Catalytic activity/Vol] 71 U/L High 10 - 52 U/L [facility] Comment on above: Patients treated with Sulfasalazine may generate falsely decreased results for ALT. Anion gap [Moles/Vol] 12 mmol/L 10 - 20 mmol/L [facility] AST With P-5'-P [Catalytic activity/Vol] 53 U/L High 9 - 39 U/L [facility] Bilirubin [Mass/Vol] 1.3 mg/dL High 0.0 - 1.2 mg/dL [facility] Calcium [Mass/Vol] 9.9 mg/dL 8.6 - 10.3 mg/dL [facility] Chloride [Moles/Vol] 103 mmol/L 98 - 107 mmol/L [facility] CO2 [Moles/Vol] 26 mmol/L 21 - 32 mmol/L [facility] Creatinine [Mass/Vol] 0.96 mg/dL 0.50 - 1.30 mg/dL [facility] GFR/1.73 sq M.predicted among non-blacks MDRD (S/P/Bld) [Vol rate/Area] 82 mL/min/{1.73_m2} - PINF [facility] Comment on above: Calculations of estimated GFR are perfor med using the 2020 CKD-EPI Study Refit equation without the race variable for the IDMS-Traceable creatinine methods. https://jasn.asnjournals.org/content//ASN.2297726203 Glucose [Mass/Vol] 172 mg/dL High 74 - 99 mg/dL [facility] Interpretation and review of laboratory results Abnormal [facility] Potassium [Moles/Vol] 4.0 mmol/L 3.5 - 5.3 mmol/L [facility] Protein [Mass/Vol] 7.1 g/dL 6.4 - 8.2 g/dL [facility] Sodium [Moles/Vol] 137 mmol/L 136 - 145 mmol/L [facility] Urea nitrogen [Mass/Vol] 16 mg/dL 6 - 23 mg/dL [facility] HbA1c (Bld) [Mass fraction]o n 08-02-2023 Average glucose Estimated from glycated hemoglobin (Bld) [Mass/Vol] 123 mg/dL Not Established [facility] Interpretation and review of laboratory results Abnormal [facility] Diagnosis of Diabete s-Adults Non-Diabetic: < or = 5.6% Increased risk for developing diabetes: 5.7-6.4% Diagnostic of diabetes: > or = 6.5% Monitoring of Diabetes Age (y)....................... Therapeutic Goal (%) Adults: >18......................... <7.0 Pediatrics: 13-18...................<7.5 Pediatrics: 7-12....................<8.0 Pediatrics: 0-6..................... 7.5-8.5 [employer]. Diabetes Care 33(S1), Jul 2009 [facility] Hemoglobin A1con 08-02-2023 HbA1c (Bld) [Mass fraction] 5.9 % High see below [facility] Initial Visit (Gastroenterol ogy)on 04-13-2023 Initial Visit (Gastroenterolog y) Diagnoses/Problems Assessed Class 2 obesity with body mass index (BMI) of 37.0 to 37.9 in adult (278.00,V85.37) (E66.9,Z68.37) Elevated LFTs (790.6) (R79.89) Hepatic steatosis (571.8) (K76.0) Orders Elevated LFTs, Hepatic steatosis [id number], Serum; Status:Active; Requested for:[id number]; Perform:Lab Services - Lab To Draw (Blood Test); Due:[id number];Ordered; For:Elevated LFTs, Hepatic steatosis; Ordered By:Jose Wright; COURTNEY-WITH REFLEX TO DAJUAN; Status:Active; Requested for:[id number]; Perform:Lab Services - Lab To Draw (Blood Test); Due:[id number];Ordered; For:Elevated LFTs, Hepatic steatosis; Ordered By:Jose Wright; Antimitochondrial Ab; Status:Active; Requested for:[id number]; Perform:Lab Services - Lab To Draw (Blood Test); Due:[id number];Ordered; For:Elevated LFTs, Hepatic steatosis; Ordered By:Jose Wright; Ceruloplasmin, Serum; Status:Active; Requested for:[id number]; Perform:Lab Services - Lab To Draw (Blood Test); Due:[id number];Ordered; For:Elevated LFTs, Hepatic steatosis; Ordered By:Jose Wright; Ferritin, Serum; Status:Active; Requested for:[id number]; Perform:Lab Services - Lab To Draw (Blood Test); Due:[id number];Ordered; For:Elevated LFTs, Hepatic steatosis; Ordered By:Jose Wright; Hepatic Function Panel; Status:Active; Requested for:[id number]; Perform:Lab Services - Lab To Draw (Blood Test); Due:[id number];Ordered; For:Elevated LFTs, Hepatic steatosis; Ordered By:Jose Wright; MARYANN Liver Ultrasound; Status:Hold For - Scheduling; Requested for:[id number]; Perform:In Office; Order Comments:FIBROSCAN (type of liver elastography). This is NOT done in radiology. Do NOT direct the patient to call radiology or schedule with radiology.; Due:[id number];Ordered; For:Elevated LFTs, Hepatic steatosis; Ordered By:Jose Wright; Radiologist to Determine Optimal Study : Y What are the patient's signs and symptoms? : Elevated liver enzymes Elevated LFTs, Hepatic steatosis, Need for hepatitis B screening test Hepatitis A Antibody, Total; Status:Active; Requested for:[id number]; Perform:Lab Services - Lab To Draw (Blood Test); Due:[id number];Ordered; For:Elevated LFTs, Hepatic steatosis, Need for hepatitis B screening test; Ordered By:Jose Wright; Hepatitis B Core Antibody, Total; Status:Active; Requested for:[id number]; Perform:Lab Services - Lab To Draw (Blood Test); Due:[id number];Ordered; For:Elevated LFTs, Hepatic steatosis, Need for hepatitis B screening test; Ordered By:Jose Wright; Hepatitis B Surface Antibody; Status:Active; Requested for:[id number]; Perform:Lab Services - Lab To Draw (Blood Test); Due:[id number];Ordered; For:Elevated LFTs, Hepatic steatosis, Need for hepatitis B screening test; Ordered By:Jose Wright; Hepatitis B Surface Antigen; Status:Active; Requested for:[id number]; Perform:Lab Services - Lab To Draw (Blood Test); Due:[id number];Ordered; For:Elevated LFTs, Hepatic steatosis, Need for hepatitis B screening test; Ordered By:Jose Wright; Hepatitis C Antibody Test; Status:Active; Requested for:[id number]; Perform:Lab Services - Lab To Draw (Blood Test); Due:[id number];Ordered; For:Elevated LFTs, Hepatic steatosis, Need for hepatitis B screening test; Ordered By:Jose Wright; Patient Discussion/Summary 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 We discussed natural history and the distinction between MASLD and MASH as well as mcc implications of a diagnosis of MASH and the increased risk of cardiovascular events associated with fatty liver We encouraged diet and exercise We will complete a work up for causes of chronic liver disease we will order FIBROSCAN to assess for steatosis and fibrosis we will see this patient in 6 weeks 30 minutes spent discussing condition, explaining results of tests and formulating plan of care Chief Complaint A telephone visit (audio only) between the patient (at the originating site) and the provider (at the distant site) was utilized to provide this telehealth service. masld History of Present Illnesshe has been noted to have elevated ALT in the setting of obesity and extensive cardiovascular risk. He drinks alcohol occasionally. he denies fluid overload or cognitive impairment. an ultrasound is consistent with steatosis Upper Gastrointestinal: no abdominal pain, no eructation, no difficulty swallowing, no early satiety, no heartburn, no jaundiced. Lower Gastrointestinal: no abdominal (more content not included)... Normal [facility] CT ABDOMEN AND PELVIS W IV C [facility] 02-09-2023 CT ABDOMEN AND PELVIS W IV CONTRAST Patient Name: ARIAN FREEMAN STUDY: CT ABDOMEN AND PELVIS W IV CONTRAST; 02/09/2023 11:54 am INDICATION: elevated lfts , fattyliver. COMPARISON: Right upper quadrant ultrasound 29 October 2020 ACCESSION NUMBER(S): [id number] ORDERING CLINICIAN: APRIL BOYD TECHNIQUE: CT of the abdomen and pelvis from the lung bases through the symphysis pubis after the uneventful administration of intravenous (90 mL Omnipaque 350) and oral contrast (500 mL water soluble) FINDINGS: LOWER CHEST: No acute airspace disease. BONES: No acute skeletal findings. Upper endplate compression deformities of L4 and T11 are chronic in appearance LIVER: Craniocaudal long-axis diameter is 18.3 cm, at most mildly enlarged. On ultrasound 29 October 2020, it was measured at 19 cm, probably unchanged allowing for different technique of measurement. As on the prior ultrasound, there is diffuse hepatic steatosis. The contours are not overtly nodular, but there is some slight hypertrophy of the lateral segment left lobe which can be seen with early cirrhosis. No mass. All three hepatic veins are patent; no acute hepatic venous thrombosis. The entire portal venous system including the splenic vein, SMV and its major tributaries, main and intrahepatic portal veins are all patent; no acute portal venous thrombosis SPLEEN: 21 mm and 11 mm lesions are not simple cysts, indeterminate. See the impression of this report. No splenomegaly. The vein is patent PANCREAS: Normal. No CT evidence of acute or chronic pancreatitis. No duct dilation. No mass. GALLBLADDER: There are gallstones; other signs of acute cholecystitis such as gallbladder dilation, significant wall thickening and surrounding inflammatory change are absent. BILE DUCTS: Normal. No biliary duct dilation. ADRENAL GLANDS: Normal. No nodule or mass. KIDNEYS AND URETERS: Normal except for the 1 cm or smaller simple cyst off posterior right kidney between the poles. No hydronephrosis on either side. No mass. Symmetric enhancement. No infarct or CT evidence of acute pyelonephritis. No substantial radiodense stone. Tiny stones and radiolucent stones could be occult on CT. LYMPH NODES: No adenopathy, intraperitoneal, retroperitoneal, pelvic or otherwise APPENDIX: Normal. Not dilated, thick walled or in any other way inflamed in appearance. No inflammatory change about the appendix. COLON: Normal. No sign of acute diverticulitis or other colitis. No annular constricting mass. SMALL BOWEL: The oral contrast has reached the colon, confirming no small bowel obstruction. STOMACH / DUODENUM: Grossly normal by CT which has limited sensitivity and specificity for the stomach and duodenum. RETROPERITONEUM: Normal. No acute hemorrhage or inflammatory change. Lymph nodes in a separate dedicated section. OMENTUM, MESENTERY AND PERITONEAL SPACES: Free intraperitoneal air: Negative Free intraperitoneal fluid: Negative Abscess: Negative Other: n/a URINARY BLADDER: Normal. No wall thickening, large diverticula, radiodense stone or surrounding inflammatory change. PELVIS: Mild enlargement of the prostate. No pelvic mass, adenopathy or free fluid. VASCULATURE: Diffuse calcified atherosclerotic disease of the abdominal aorta and iliac arteries. 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 I do not suspect a fusiform aneurysm as the primary cause of this short-segment increase in caliber of the mid infrarenal aorta, but rather a short-segment, auto-resolving mid infrarenal abdominal aortic dissection of length no greater than about 5-6 cm, with the majority of the false lumen thrombosed ABDOMINAL WALL: Hernia: Negative Other: No acute or contributory abnormality. IMPRESSION: The liver is mildly enlarged and fatty, both findings unchanged from the only comparison exam available, right upper quadrant ultrasound 29 October 2020 While the liver is not overtly nodular in contour to suggest overt cirrhosis, there is some hypertrophy of the lateral segment left lobe, which can be associated with cirrhosis All three hepatic veins are patent; no acute hepatic venous thrombosis The entire portal venous system including the splenic vein, SMV and its major tributaries, main and intrahepatic portal veins are all patent; no acute portal venous thrombosis No splenomegaly, ascites or varices to suggest portal hypertension No biliary duct dilation At least one gallstone, but no acute cholecystitis Incidental mid infrarenal abdominal aortic caliber of 40 x 32 mm; however, rather than the fusiform dilation seen with simple true aneurysms, I suspect there is 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 Normal [facility] CBCon 01-15-2023 Erythrocyte distribution width (RBC) [Ratio] 12.8 % Normal 11.5 - 14.5 [facility] Comment on above: Performed By: #### CBC #### [address] [address] Hematocrit (Bld) [Volume fraction] 49.3 % Normal 41.0 - 52.0 [facility] Comment on above: Performed By: #### CBC #### [address] [address] Hemoglobin (Bld) [Mass/Vol] 16.9 g/dL Normal 13.5 - 17.5 [facility] Comment on above: Performed By: #### CBC #### [address] [address] MCHC (RBC) [Mass/Vol] 34.3 g/dL Normal 32.0 - 36.0 [facility] Comment on above: Performed By: #### CBC #### [address] [address] MCV (RBC) [Entitic vol] 100 fL Normal 80 - 100 [facility] Comment on above: Performed By: #### CBC #### [address] [address] Platelets (Bld) [#/Vol] 217 10*3/uL Normal 150 - 450 [facility] Comment on above: Performed By: #### CBC #### [address] [address] RBC 4.94 x10E12/L Normal 4.50 - 5.90 [facility] Comment on above: Performed By: #### CBC #### [address] [address] WBC (Bld) [#/Vol] 5.6 10*3/uL Normal 4.4 - 11.3 [facility] Comment on above: Performed By: #### CBC #### [address] [address] COMPREHENSIVE PANELon 2022 Albumin [Mass/Vol] 4.2 g/dL Normal 3.4 - 5.0 [facility] Comment on above: Performed By: #### CMP #### [address] [address] ALP [Catalytic activity/Vol] 47 U/L Normal 33 - 136 [facility] Comment on above: Performed By: #### CMP #### [address] [address] ALT [Catalytic activity/Vol] 162 U/L High 10 - 52 [facility] Comment on above: Result Comment: Patients treated with [place] lfasalazine may generate falsely decreased results for ALT. Performed By: #### C MP #### [address] [address] Anion gap [Moles/Vol] 11 mmol/L Normal 10 - 20 [facility] Comment on above: Performed By: #### CMP #### [address] [place] [address] AST [Catalytic activity/Vol] 135 U/L High 9 - 39 [facility] Comment on above: Performed By: #### CMP #### [address] [address] Bilirubin [Mass/Vol] 1.0 mg/dL Normal 0.0 - 1.2 [facility] Comment on above: Performed By: #### CMP #### [address] [address] Calcium [Mass/Vol] 10.2 mg/dL Normal 8.6 - 10.3 [facility] Comment on above: Performed By: #### CMP #### [address] [address] Chloride [Moles/Vol] 104 mmol/L Normal 98 - 107 [facility] Comment on above: Performed By: #### CMP #### [address] [address] Creatinine [Mass/Vol] 0.95 mg/dL Normal 0.50 - 1.30 [facility] Comment on above: Performed By: #### CMP #### [address] [address] GFR/1.73 sq M.predicted among non-blacks MDRD (S/P/Bld) [Vol rate/Area] 83 mL/min/{1.73_m2} Normal >90 [facility] Comment on above: Result Comment: CALCULATIONS OF ESTIMATE D GFR ARE PERFORMED USING THE 2020 CKD-EPI STUDY REFIT EQUATION WITHOUT THE RACE VARIABLE FOR THE IDMS-TRACEABLE CREATININE METHODS. https://jasn.asnjournals.org/content/early//ASN.3301931348 Performed By: #### C MP #### [address] [address] Glucose [Mass/Vol] 131 mg/dL High 74 - 99 [facility] Comment on above: Performed By: #### CMP #### [address] [address] HCO3 (Bld) [Moles/Vol] 28 mmol/L Normal 21 - 32 [facility] Comment on above: Performed By: #### CMP #### [address] [address] Potassium [Moles/Vol] 3.5 mmol/L Normal 3.5 - 5.3 [facility] Comment on above: Performed By: #### CMP #### [address] [address] Protein [Mass/Vol] 7.2 g/dL Normal 6.4 - 8.2 [facility] Comment on above: Performed By: #### CMP #### [address] [address] Sodium [Moles/Vol] 139 mmol/L Normal 136 - 145 [facility] Comment on above: Performed By: #### CMP #### [address] [address] Urea nitrogen [Mass/Vol] 17 mg/dL Normal 6 - 23 [facility] Comment on above: Performed By: #### CMP #### [address] [address] HEMOGLOBIN A1Con 01-15-2023 Glucose [Mass/Vol] 128 mg/dL Normal [facility] Comment on above: Performed By: #### HBA1E #### [address] [address] HbA1c (Bld) [Mass fraction] 6.1 % Abnormal [facility] Comment on above: Result Comment: Diagnosis of Diabetes-Ad ults Non-Diabetic: < or = 5.6% Increased risk for developing diabetes: 5.7-6.4% Diagnostic of diabetes: > or = 6.5% . Monitoring of Diabetes Age (y) Therapeutic Goal (%) Adults: >18 <7.0 Pediatrics: 13-18 <7.5 7-12 <8.0 0- 6 7.5-8.5 [employer]. Diabetes Care 33(S1), Jul 2009. Performed By: #### H BA1E #### [address] [address] LIPID PANEL (CORONARY RISK 2 )on 01-15-2023 Cholesterol [Mass/Vol] 171 mg/dL Normal 0 - 199 [facility] Comment on above: Result Comment: . AGE DESIRABLE BORDERLINE HIGH HIGH 0-19 Y 0 - 169 170 - 199 >/= 200 20-24 Y 0 - 189 190 - 224 >/= 225 >24 Y 0 - 199 200 - 239 >/= 240 All ranges are based on fasting samples. Specific therapeutic targets will vary based on patient-specific cardiac risk. . Pediatric guidelines reference:Pediatrics 2011, 128(S5). Adult guidelines reference: NCEP ATPIII Guidelines, ALLYSON 2001, 258:2486-97 . Venipuncture immediately after or during the administration of Metamizole may lead to falsely low results. Testing should be performed immediately prior to Metamizole dosing. Performed By: #### L IPID #### [address] [address] Cholesterol in HDL [Mass/Vol] 27.0 mg/dL Abnormal [facility] Comment on above: Result Comment: . AGE VERY LOW LOW NORMAL HIGH 0-19 Y < 35 < 40 40-45 ---- 20-24 Y ---- < 40 >45 ---- >24 Y ---- < 40 40-60 >60 . Performed By: #### L IPID #### [address] [address] Cholesterol in LDL [Mass/Vol] 87 mg/dL Normal 0 - 99 [facility] Comment on above: Result Comment: . NEAR BORD AGE DESIRABLE OPTIMAL HIGH HIGH VERY HIGH 0-19 Y 0 - 109 --- 110-129 >/= 130 ---- 20-24 Y 0 - 119 --- 120-159 >/= 160 ---- >24 Y 0 - 99 100-129 130-159 160-189 >/=190 . Performed By: #### L IPID #### [address] [address] Cholesterol in VLDL [Mass/Vol] 57 mg/dL High 0 - 40 [facility] Comment on above: Performed By: #### LIPID #### [address] [address] Cholesterol.tota l/Cholesterol in HDL [Mass ratio] 6.3 {ratio} Abnormal [facility] Comment on above: Result Comment: REF VALUES DESIRABLE < 3.4 HIGH RISK > 5.0 Performed By: #### L IPID #### [address] [address] NON-HDL CHOLESTEROL 144 mg/dL Normal [facility] Comment on above: Result Comment: AGE DESIRABLE BORDERLINE HIGH HIGH VERY HIGH 0-19 Y 0 - 119 120 - 144 >/= 145 >/= 160 20-24 Y 0 - 149 150 - 189 >/= 190 ---- >24 Y 30 MG/DL ABOVE LDL CHOLESTEROL GOAL . Performed By: #### L IPID #### [address] [address] Triglyceride [Mass/Vol] 285 mg/dL High 0 - 149 [facility] Comment on above: Result Comment: . AGE DESIRABLE BORDERLINE HIGH HIGH VERY HIGH 0 D-90 D 19 - 174 ---- ---- ---- 91 D- 9 Y 0 - 74 75 - 99 >/= 100 ---- 10-19 Y 0 - 89 90 - 129 >/= 130 ---- 20-24 Y 0 - 114 115 - 149 >/= 150 ---- >24 Y 0 - 149 150 - 199 200- 499 >/= 500 . Venipuncture immediately after or during the administration of Metamizole may lead to falsely low results. Testing should be performed immediately prior to Metamizole dosing. Performed By: #### L IPID #### [address] [address] PROSTATE SPEC.AG,SCREENon PROSTATE SPEC.AG,SCREEN 2.07 ng/mL Normal 0.00 - 4.00 [facility] Comment on above: Result Comment: The FDA requires that th e method used for PSA assay be reported to the physician. Values obtained with different assay methods must not be used interchangeably. This test was performed at [facility] using the [employer] PSA assay is a two-site immunoenzymatic sandwich assay. The assay is approved for measurement of prostate-specific antigen (PSA)in serum and may be used in conjunction with a digital rectal examination in men 50 years and older as an aid in detection of prostate cancer. 3-Zhmhy-ftyemcggl inhibitors (e.g. Proscar, Finasteride, Avodart, Dutasteride and Miriam) for the treatment of BPH have been shown to lower PSA levels by an average of 50% after 6 months of treatment. Performed By: #### P [facility] #### [facility] [address] [place] [address] Office Visit (Primary Care T xt/Forms)on 07-31-2022 Follow-up visit Diagnoses/Problems Assessed Class 2 obesity with body mass index (BMI) of 38.0 to 38.9 in adult (278.00,V85.38) (E66.9,Z68.38) GERD (gastroesophageal reflux disease) (530.81) (K21.9) HTN (hypertension) (401.9) (I10) Hyperlipidemia (272.4) (E78.5) IGT (impaired glucose tolerance) (790.22) (R73.02) Screening for prostate cancer (V76.44) (Z12.5) Orders Combined hyperlipidemia, IGT (impaired glucose tolerance) Lipid Panel; Status:Active; Requested for:31Jul2022; Encounter for immunization Temporarily Stop: Influenza, seasonal, injectable GERD (gastroesophageal reflux disease) Renew: Pantoprazole Sodium 40 MG Oral Tablet Delayed Release; Take 1 tablet daily HTN (hypertension) Renew: hydroCHLOROthiazide 25 MG Oral Tablet; TAKE 1 TABLET BY MOUTH EVERY DAY Hyperlipidemia Renew: Simvastatin 40 MG Oral Tablet; TAKE 1 TABLET DAILY IGT (impaired glucose tolerance) Complete Blood Count; Status:Active; Requested for:31Jul2022; Comprehensive Metabolic Panel; Status:Active; Requested for:31Jul2022; Hemoglobin A1C; Status:Active; Requested for:31Jul2022; Screening for prostate cancer Prostate Spec.Ag, Screen; Status:Active; Requested for:31Jul2022; Patient Discussion/Summary 6 month appointment and labs. Chief Complaint 6 MO FU. REV LABS 6 MO PRIOR History of Present Illness had covid on cruise this summer, with [place] and dysguesia Since the last office visit there have been no interval operations, hospitalizations, important illnesses or injuries. Hyperlipidemia- is on statin and a prudent diet. HTN-Takes and tolerates meds without side effects. No alcohol. no tobacco. no exercise. low salt. Reviewed recommendation for 150 minutes of exercise per week including 2 days of weight training if over age 50 GERD-Takes PPI daily with no breakthrough symptoms. Reviewed dietary, caffeine, tobacco, alcohol, and NSAID avoidance. Review of Systems General-no fatigue weight to within 10 pounds ENT no problems with vision swallowing Cardiac no chest pains palpitations change in exercise tolerance or capacity Pulmonary no cough shortness of breath GI no heartburn or abdominal pain Musculoskeletal no joint pains Active Problems Problems Age-related macular degeneration, dry, both eyes (362.51) (H35.3130) Astigmatism (367.20) (H52.209) Class 2 obesity with body mass index (BMI) of 37.0 to 37.9 in adult (278.00,V85.37) (E66.9,Z68.37) Combined form of age-related cataract, left eye (366.19) (H25.812) Combined form of age-related cataract, right eye (366.19) (H25.811) 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) Elevated LFTs (790.6) (R79.89) Encounter for immunization (V03.89) (Z23) GERD (gastroesophageal reflux disease) (530.81) (K21.9) 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) (R41.3) HTN (hypertension) (401.9) (I10) Hyperlipidemia (272.4) (E78.5) IGT (impaired glucose tolerance) (790.22) (R73.02) Insomnia, unspecified type (780.52) (G47.00) Myopia (367.1) (H52.10) 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.1,367.4) (H52.10,H52.4) Open-angle glaucoma of left eye, 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,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) (H40.10X1) Screening for prostate cancer (V76.44) (Z12.5) Tubular adenoma of colon (211.3) (D12.6) Past Medical History Problems History of Cataracts, both eyes (366.9) (H26.9) History of glaucoma (V12.49) (Z86.69) History of high cholesterol (V12.29) (Z86.39) History of No pertinent past surgical history Surgical History Problems History of Cataract surgery History of Colonoscopy History of Esophagogastroduodenoscopy History of Tooth extraction Family History Mother Family history of AMD (age related macular degeneration) Family history of Cardiac defibrillator in place Family history of cerebrovascular accident (CVA) (V17.1) (Z82.3) Father Family history of gastroesophageal reflux disease (V18.59) (Z83.79) Sister Family history of gastroesophageal reflux disease (V18.59) (Z83.79) Brother Family history of gastroesophageal reflux disease (V18.59) (Z83.79) Maternal Grandmother Family history of diabetes mellitus (V18.0) (Z83.3) Maternal Aunt Family history of diabetes mellitus (V18.0) (Z83.3) Other Family history of cerebrovascular accident (CVA) (V17.1) (Z82.3) Family history of diabetes mellitus (V18.0) (Z83.3) Social History Problems Consumes alcohol (V49.89) (Z78.9) Does not use illicit drugs (V49.89) (Z78.9) Former smoker (V15.82) (Z87.891) Never chewed tobacco (V49.89) (Z78.9) Patient has healthcare proxy and living will (V49.89) (Z78.9) Current Meds Medication NameInstruction Aspirin 325 MG Oral TabletTAKE 1 TABLET DAILY. hydroCHLOROthiazide 25 MG Oral TabletTAKE 1 TABLET BY MOUTH EVERY DAY Multi-Vitamin Oral Tablet Pantoprazole Sodium 40 MG Oral Tablet Delayed ReleaseTake 1 tablet daily Potassium Chloride ER 10 MEQ Oral Tablet Extended ReleaseTAKE 1 TABLET DAILY. Simvastatin 40 MG Oral TabletTAKE 1 TABLET DAILY. Timolol Maleate 0.5 % Ophthalmic Solution (more content not included)... Normal [employer] Hemoglobin A1Con 01-28-2022 Glucose [Mass/Vol] 120 mg/dL [employer] Work Phone: HbA1c (Bld) [Mass fraction] 5.8 % Abnormal [employer] [facility] Work Phone: Comment on above: Diagnosis of Diabetes-Adults Non-Diabeti c: < or = 5.6% Increased risk for developing diabetes: 5.7-6.4% Diagnostic of diabetes: > or = 6.5%. Monitoring of Diabetes Age (y) Therapeutic Goal (%) Adults: >18 <7.0 Pediatrics: 13-18 <7.5 7-12 <8.0 0- 6 7.5-8.5 [employer]. Diabetes Care 33(S1), Jul 2009. Laboratory - Chemistry and C hemistry - challengeon 01-28-2022 Anion gap [Moles/Vol] 12 mmol/L 10 - 20 [facility] Work Phone: Calcium [Mass/Vol] 9.9 mg/dL 8.6 - 10.3 [facility] Work Phone: Chloride [Moles/Vol] 104 mmol/L 98 - 107 [facility] Work Phone: CO2 [Moles/Vol] 26 mmol/L 21 - 32 -[facility] Work Phone: Creatinine [Mass/Vol] 0.95 mg/dL See Below [facility] Work Phone: Comment on above: Reference Range: 0.50 - 1.30 Glucose [Mass/Vol] 114 mg/dL above high threshold 74 - 99 [facility] Work Phone: Potassium [Moles/Vol] 3.9 mmol/L 3.5 - 5.3 [facility] Work Phone: Sodium [Moles/Vol] 138 mmol/L 136 - 145 [facility] Work Phone: Urea nitrogen [Mass/Vol] 15 mg/dL 6 - 23 [facility] Work Phone: No Panel Informationon 01-28 84 {mL/min/1.73m2} >90 [facility] Work Phone: Comment on above: CALCULATIONS OF ESTIMATED GFR ARE PERFOR MED USING THE 2020 CKD-EPI STUDY REFIT EQUATION WITHOUT THE RACE VARIABLE FOR THE IDMS-TRACEABLE CREATININE METHODS.https://jasn.asnjournals.org/content/early//ASN.391 0145928 Tobacco Screening.on 022 Adult depression screening assessment No [facility] Work Phone: [phone] Fall risk assessment a) No falls within the last year [facility] Work Phone: Tobacco use status CPHS b) No [facility] Work Phone: [phone] Laboratory - Chemistry and C hemistry - challengeon 01-20-2022 Albumin BCP dye [Mass/Vol] 4.1 g/dL 3.4 - 5.0 [facility] Work Phone: ALP [Catalytic activity/Vol] 41 U/L 33 - 136 -[facility] Work Phone: ALT With P-5'-P [Catalytic activity/Vol] 51 U/L 10 - 52 [employer] [facility] Work Phone: [phone] Comment on above: Patients treated with Sulfasalazine may generate falsely decreased results for ALT. Anion gap [Moles/Vol] 11 mmol/L 10 - 20 -[facility] Work Phone: AST With P-5'-P [Catalytic activity/Vol] 34 U/L 9 - 39 [employer] [facility] Work Phone: Bilirubin [Mass/Vol] 1.1 mg/dL 0.0 - 1.2 -[facility] Work Phone: Calcium [Mass/Vol] 9.6 mg/dL 8.6 - 10.3 -[facility] Work Phone: Chloride [Moles/Vol] 103 mmol/L 98 - 107 -[facility] Work Phone: CO2 [Moles/Vol] 26 mmol/L 21 - 32 -[facility] [email or web address] Phone: Creatinine [Mass/Vol] 0.95 mg/dL See Below [employer] [facility] Work Phone: Comment on above: Reference Range: 0.50 - 1.30 Glucose [Mass/Vol] 129 mg/dL above high threshold 74 - 99 [facility] Work Phone: [phone] Potassium [Moles/Vol] 3.2 mmol/L below low threshold 3.5 - 5.3 [facility] Work Phone: [phone] Protein [Mass/Vol] 7.0 g/dL 6.4 - 8.2 [facility] Work Phone: [phone] Sodium [Moles/Vol] 137 mmol/L 136 - 145 -[facility] Work Phone: [phone] Urea nitrogen [Mass/Vol] 15 mg/dL 6 - 23 [facility] Work Phone: [phone] Laboratory - Hematology and Cell countson 01-20-2022 Erythrocyte distribution width (RBC) [Ratio] 13.1 % See Below [facility] Work Phone: [phone] Comment on above: Reference Range: 11.5 - 14.5 Hematocrit (Bld) [Volume fraction] 47.8 % See Below [facility] Work Phone: [phone] Comment on above: Reference Range: 41.0 - 52.0 Hemoglobin (Bld) [Mass/Vol] 16.5 g/dL See Below [facility] Work Phone: [phone] Comment on above: Reference Range: 13.5 - 17.5 MCHC (RBC) [Mass/Vol] 34.5 g/dL See Below [facility] Work Phone: [phone] Comment on above: Reference Range: 32.0 - 36.0 MCV (RBC) [Entitic vol] 98 fL 80 - 100 [facility] Work Phone: [phone] Platelets (Bld) [#/Vol] 240 10*3/uL 150 - 450 [facility] Work Phone: [phone] RBC (Bld) [#/Vol] 4.91 {x10E12/L} See Below [employer] [facility] Work Phone: Comment on above: Reference Range: 4.50 - 5.90 WBC (Bld) [#/Vol] 5.9 10*3/uL 4.4 - 11.3 [employer] [facility] Work Phone: Lipid Panelon 01-20-2022 Cholesterol [Mass/Vol] 151 mg/dL 0 - 199 [employer] [facility] Work Phone: [phone] Comment on above: . AGE DESIRABLE BORDERLINE HIGH HIGH 0-1 9 Y 0 - 169 170 - 199 >/= 200 20-24 Y 0 - 189 190 - 224 >/= 225 >24 Y 0 - 199 200 - 239 >/= 240 All ranges are based on fasting samples. Specific therapeutic targets will vary based on patient-specific cardiac risk.. Pediatric guidelines reference:Pediatrics 2011, 128(S5). Adult guidelines reference: NCEP ATPIII Guidelines, ALLYSON 2001, 258:2486-97. Venipuncture immediately after or during the administration of Metamizole may lead to falsely low results. Testing should be performed immediately prior to Metamizole dosing. Cholesterol in HDL [Mass/Vol] 26.0 mg/dL Abnormal [employer] [facility] Work Phone: Comment on above: . AGE VERY LOW LOW NORMAL HIGH 0-19 Y < 35 < 40 40-45 ---- 20-24 Y ---- < 40 >45 ---- >24 Y ---- < 40 40-60 >60. Cholesterol in LDL [Mass/Vol] 79 mg/dL 0 - 99 [employer] [facility] Work Phone: [phone] Comment on above: . NEAR BORD AGE DESIRABLE OPTIMAL HIGH H IGH VERY HIGH 0-19 Y 0 - 109 --- 110-129 >/= 130 ---- 20-24 Y 0 - 119 --- 120-159 >/= 160 ---- >24 Y 0 - 99 100-129 130-159 160-189 >/=190. Cholesterol non HDL [Mass/Vol] 125 mg/dL [employer] [facility] Work Phone: [phone] Comment on above: AGE DESIRABLE BORDERLINE HIGH HIGH VERY HIGH 0-19 Y 0 - 119 120 - 144 >/= 145 >/= 160 20-24 Y 0 - 149 150 - 189 >/= 190 ---- >24 Y 30 MG/DL ABOVE LDL CHOLESTEROL GOAL. Cholesterol.tota l/Cholesterol in HDL [Mass ratio] 5.8 {ratio} Abnormal [facility] Work Phone: [phone] Comment on above: REF VALUESDESIRABLE < 3.4HIGH RISK > 5.0 Triglyceride [Mass/Vol] 228 mg/dL above high threshold 0 - 149 [facility] Work Phone: [phone] Comment on above: . AGE DESIRABLE BORDERLINE HIGH HIGH BRENNA Y HIGH 0 D-90 D 19 - 174 ---- ---- ----91 D- 9 Y 0 - 74 75 - 99 >/= 100 ---- 10-19 Y 0 - 89 90 - 129 >/= 130 ---- 20-24 Y 0 - 114 115 - 149 >/= 150 ---- >24 Y 0 - 149 150 - 199 200- 499 >/= 500. Venipuncture immediately after or during the administration of Metamizole may lead to falsely low results. Testing should be performed immediately prior to Metamizole dosing. Lipid Panel 46 mg/dL above high threshold 0 - 40 [facility] Work [place]: No Panel Informationon 01-20 84 {mL/min/1.73m2} >90 [facility] [place]: [phone] Comment on above: CALCULATIONS OF ESTIMATED GFR ARE PERFOR MED USING THE 2020 CKD-EPI STUDY REFIT EQUATION WITHOUT THE RACE VARIABLE FOR THE IDMS-TRACEABLE CREATININE METHODS.https://jasn.asnjournals.org/content//ASN.742 1996968 Prostate Spec.Ag, Screenon 0 01-20-2022 Prostate specific Ag [Mass/Vol] 1.51 ng/mL See Below [facility] Work Phone: [phone] Comment on above: Reference Range: 0.00 - 4.00The FDA requ ires that the method used for PSA assay be reported to the physician. Values obtained with different assay methods must not be used interchangeably. This testwas performed at [facility] using the [employer] PSA assay is a two-site immunoenzymatic sandwich assay. The assay is approved for measurement of prostate-specific antigen (PSA)in serum and may be used in conjunction with a digital rectal examination in men 50 years and older as an aid in detection of prostate cancer.6-Jpppy-bpxkweekv inhibitors (e.g. Proscar, Finasteride, Avodart, Dutasteride and Miriam) for the treatment of BPH have been shown to lower PSA levels by an average of 50% after 6 months of treatment. Falls Risk Screeningon 07-31 Fall risk assessment a) No falls within the last year [employer] [facility] Work Phone: Tobacco use status CPHS b) No [employer] [facility] Work Phone: [phone] Laboratory - Chemistry and C hemistry - challengeon 07-21-2021 Albumin BCP dye [Mass/Vol] 4.2 g/dL 3.4 - 5.0 [employer] [facility] Work Phone: [phone] ALP [Catalytic activity/Vol] 43 U/L 33 - 136 [employer] [facility] Work Phone: [phone] ALT With P-5'-P [Catalytic activity/Vol] 73 U/L above high threshold 10 - 52 [employer] [facility] [email or web address] Phone: Comment on above: Patients treated with Sulfasalazine may generate falsely decreased results for ALT. Anion gap [Moles/Vol] 12 mmol/L 10 - 20 [employer] [facility] Work Phone: [phone] AST With P-5'-P [Catalytic activity/Vol] 50 U/L above high threshold 9 - 39 [employer] [facility] Work Phone: [phone] Bilirubin [Mass/Vol] 1.3 mg/dL above high threshold 0.0 - 1.2 [employer] [facility] [email or web address] Phone: [phone] Calcium [Mass/Vol] 10.2 mg/dL 8.6 - 10.3 [facility] Work Phone: Chloride [Moles/Vol] 102 mmol/L 98 - 107 -[facility] Work Phone: CO2 [Moles/Vol] 29 mmol/L 21 - 32 -[facility] [employer] [facility] Work Phone: Creatinine [Mass/Vol] 1.00 mg/dL See Below -[facility] Work Phone: Comment on above: Reference Range: 0.50 - 1.30 Glucose [Mass/Vol] 110 mg/dL above high threshold 74 - 99 -[facility] Work Phone: Potassium [Moles/Vol] 3.7 mmol/L 3.5 - 5.3 -Medical [employer] [facility] Work Phone: Protein [Mass/Vol] 7.5 g/dL 6.4 - 8.2 -[facility] Work Phone: Sodium [Moles/Vol] 139 mmol/L 136 - 145 -Medical [employer] [facility] Work Phone: Urea nitrogen [Mass/Vol] 16 mg/dL 6 - 23 -[facility] Work Phone: No Panel Informationon 07-21 >60 >60 [facility] Work Phone: Comment on above: CALCULATIONS OF ESTIMATED GFR ARE PERFOR MED USING THE MDRD STUDY EQUATION FOR THE IDMS-TRACEABLE CREATININE METHODS. CLIN CHEM 2007;53:766-72 Tobacco Screening.on 021 Fall risk assessment a) No falls within the last year [facility] Work Phone: Tobacco use status CPHS b) No [facility] Work Phone: XR KNEES BILATERAL 4+ VIEWS (SPECIFY VIEWS IN COMMENTS)on 11-22-2019 XR KNEES BILATERAL 4+ VIEWS (SPECIFY VIEWS IN COMMENTS) EXAMINATION: XR KNEES BILATERAL 4+ VIEWS (SPECIFY VIEWS IN COMMENTS) HISTORY: ORDERING SYSTEM PROVIDED HISTORY: Pain, TECHNOLOGIST PROVIDED HISTORY: Illness/Other Reason for exam: pain off AND on x 1 yr Cancer History: u Surgery, RadiationHistory: u Encounter Type: Unknown Additional signs and symptoms: pain off AND on x 1 yr ORDERING SYSTEM PROVIDED DIAGNOSIS CODES: R52 Pain COMPARISON: None. FINDINGS: AP standing, PA flexion and sunrise views of both knees. Lateral view of each knee. Right knee: No acute fracture. Moderate medial knee and lateral knee compartment joint space narrowing with mild marginal osteophytosis. Mild marginal osteophytosis of the patellofemoral compartment. No significant joint effusion. Left knee: No acute fracture. Severe medial knee compartment joint space narrowing with near [id number]-vdtq appearance, subchondral sclerosis, and mild marginal osteophytosis. Mild lateral knee and patellofemoral compartment marginal osteophytosis. No significant joint effusion. IMPRESSION: No acute osseous abnormality. Bilateral tricompartmental osteoarthritis, most severe within the left medial knee compartment. [employer]-Tag Workstation ID: [id number] Dictated by: MARILIN FOX on WedNovember 22, 2019 5:13:47 PM EDT Transcribed by: SALVADOR RAMÍREZ on WedNovember 22, 2019 5:16:52 PM EDT Finalized by: MARILIN FOX on WedNovember 22, 2019 5:55:06 PM EDT Normal [facility] Comment on above: Order Comment: Injury/Trauma or Illness? :Illness/Other How long have you had these symptoms (acute/chronic)?:Chronic Reason for exam?:pain off AND on x 1 yr History of cancer?:u Surgeries, chemotherapy, or radiation?:u Type of Exam?:Unknown Additional signs and symptoms?:pain off AND on x 1 yr [facility] Calcium mass conc 9.7 mg/dL Normal 8.4-10.[address] [facility] Comment on above: Performed By: #### [id number] #### [employer] [address] [place] [address] Chloride molar conc 104 mmol/L Normal 98-[address] [facility] Comment on above: Performed By: #### [id number] #### [employer] [address] [place] [address] CO2 molar conc 26.2 mmol/L Normal 24.0-30.[address] [facility] Comment on above: Performed By: #### [id number] #### CRISTIN Barber [facility] [place] [address] Creatinine mass conc 1.1 mg/dL Normal 0.6-1.[address] [facility] Comment on above: Performed By: #### [id number] #### CRISTIN Barber [address] [place] [address] Glucose mass conc 116 mg/dL High 70-[address] [facility] Comment on above: Performed By: #### [id number] #### CRISTIN Barber [facility] [place] [address] Potassium molar conc 3.5 mmol/L Normal 3.5-5.[address] [facility] Comment on above: Performed By: #### [id number] #### CRISTIN Barber [address] [place] [address] Sodium molar conc 140 mmol/L Normal 136-[address] [facility] Comment on above: Performed By: #### [id number] #### CRISTIN Barber [address] [place] [address] Urea nitrogen mass conc 19 mg/dL High 7-[address] [facility] Comment on above: Performed By: #### [id number] #### CRISTIN Barber [address] [place] [address] Urea nitrogen/Creatin ine mass ratio 17.3 ratio Normal 5.4-30.[address] [facility] Comment on above: Performed By: #### [id number] #### CRISTINAmilcar Gutierres[address] [address] eGFRon 03-31-2018 GFR/1.73 sq M predicted among non-blacks MDRD vol rate/area (S/P/Bld) mL/min/{1.73_m2} Normal [facility] Comment on above: Order Comment: Order added by Sandy leyva. Performed By: #### [id number] #### CRISTIN Barber [facility] [place] [address] Vital Signs Date Time Vital Sign Value Performing Clinician Facility 02-06-2025 09:16-0400 Body mass index (BMI) [Ratio] 34.58 kg/m2 April Boyd MD Work Phone: [facility] 02-06-2025 09:16-0400 Body weight 115.67 kg April Boyd MD Work Phone: [facility] 02-06-2025 09:16-0400 Diastolic blood pressure 74 mm[Hg] April Boyd MD Work Phone: [facility] 02-06-2025 09:16-0400 Heart rate 60 /min April Boyd MD Work Phone: [facility] 02-06-2025 09:16-0400 SaO2% (BldA) [Mass fraction] 97 % April Boyd MD Work Phone: [facility] 02-06-2025 09:16-0400 Systolic blood pressure 124 mm[Hg] April Boyd MD Work Phone: [facility] 01-05-2025 14:37-0400 Body height 182.9 cm Pasha Vj AUTOMATIC EQUIPMENT TECHNICIAN-FAMILY COURT COUNSELLOR Work Phone: [facility] 01-05-2025 14:37-0400 Body mass index (BMI) [Ratio] 37.3 kg/m2 Pasha Vj AUTOMATIC EQUIPMENT TECHNICIAN-FAMILY COURT COUNSELLOR Work Phone: [facility] 01-05-2025 14:37-0400 Body temperature 97.9 [degF] Pasha Vj AUTOMATIC EQUIPMENT TECHNICIAN-FAMILY COURT COUNSELLOR Work Phone: [facility] 01-05-2025 14:37-0400 Body weight 124.74 kg Pasha Vj AUTOMATIC EQUIPMENT TECHNICIAN-FAMILY COURT COUNSELLOR Work Phone: [facility] 01-05-2025 14:37-0400 Diastolic blood pressure 82 mm[Hg] Pasha Vj AUTOMATIC EQUIPMENT TECHNICIAN-FAMILY COURT COUNSELLOR Work Phone: [facility] 01-05-2025 14:37-0400 Heart rate 94 /min Pasha Vj AUTOMATIC EQUIPMENT TECHNICIAN-FAMILY COURT COUNSELLOR Work Phone: [facility] 01-05-2025 14:37-0400 Respiratory rate 14 /min Pasha Vj AUTOMATIC EQUIPMENT TECHNICIAN-FAMILY COURT COUNSELLOR Work Phone: [facility] 01-05-2025 14:37-0400 SaO2% (BldA) [Mass fraction] 96 % Pasha Zabala AUTOMATIC EQUIPMENT TECHNICIAN-FAMILY COURT COUNSELLOR Work Phone: [facility] 01-05-2025 14:37-0400 Systolic blood pressure 132 mm[Hg] Pasha Zabala AUTOMATIC EQUIPMENT TECHNICIAN-FAMILY COURT COUNSELLOR Work Phone: [facility] 08-09-2024 08:04-0500 Body height 182.9 cm April Boyd MD Work Phone: [facility] 08-09-2024 08:04-0500 Body mass index (BMI) [Ratio] 37.57 kg/m2 April Boyd MD Work Phone: [facility] 08-09-2024 08:04-0500 Body weight 125.65 kg Arpil Boyd MD Work Phone: [facility] 08-09-2024 08:04-0500 Diastolic blood pressure 72 mm[Hg] April Boyd MD Work Phone: [facility] 08-09-2024 08:04-0500 Heart rate 83 /min April Boyd MD Work Phone: [facility] 08-09-2024 08:04-0500 SaO2% (BldA) [Mass fraction] 98 % April Boyd MD Work Phone: [facility] 08-09-2024 08:04-0500 Systolic blood pressure 132 mm[Hg] April Boyd MD Work Phone: [facility] 02-07-2024 08:46-0400 Body height 182.9 cm April Boyd MD Work Phone: [facility] 02-07-2024 08:46-0400 Body mass index (BMI) [Ratio] 37.07 kg/m2 April Boyd MD Work Phone: [facility] 02-07-2024 08:46-0400 Body weight 123.97 kg April Boyd MD Work Phone: [facility] 02-07-2024 08:46-0400 Diastolic blood pressure 80 mm[Hg] April Body MD Work Phone: [facility] 02-07-2024 08:46-0400 Heart rate 57 /min April Boyd MD Work Phone: [facility] 02-07-2024 08:46-0400 SaO2% (BldA) [Mass fraction] 96 % April Boyd MD Work Phone: [facility] 02-07-2024 08:46-0400 Systolic blood pressure 140 mm[Hg] April Boyd MD Work Phone: [phone])056-7875[address] [place] [address] 08-02-2023 08:44-0500 Body height 182.9 cm April Boyd MD Work Phone: [phone])218-209745 [address] 08-02-2023 08:44-0500 Body mass index (BMI) [Ratio] 38.4 kg/m2 April Boyd MD Work Phone: [phone] [place] [address] 08-02-2023 08:44-0500 Body weight 128.41 kg April Boyd MD Work Phone: [phone])488-238041 [place] [address] 08-02-2023 08:44-0500 Diastolic blood pressure 80 mm[Hg] April Boyd MD Work Phone: [phone])613-428[address] [place] [address] 08-02-2023 08:44-0500 Heart rate 61 /min April Boyd MD Work Phone: [phone])779-976941 [place] [address] 08-02-2023 08:44-0500 SaO2% (BldA) [Mass fraction] 97 % April Boyd MD Work Phone: [phone])890-331541 [place] [address] 08-02-2023 08:44-0500 Systolic blood pressure 136 mm[Hg] April Boyd MD Work Phone: [phone] [place] [address] 01-26-2023 08:47-0400 Body height 182.9 cm April Boyd MD Work Phone: [phone] [place] [address] 01-26-2023 08:47-0400 Body mass index (BMI) [Ratio] 37.09 kg/m2 April Boyd MD Work Phone: [facility] 01-26-2023 08:47-0400 Body weight 124.06 kg April Boyd MD Work Phone: [facility] 01-26-2023 08:47-0400 Diastolic blood pressure 70 mm[Hg] April Boyd MD Work Phone: [facility] 01-26-2023 08:47-0400 Heart rate 63 /min April Boyd MD Work Phone: [facility] 01-26-2023 08:47-0400 SaO2% (BldA) [Mass fraction] 95 % April Boyd MD Work Phone: [facility] 01-26-2023 08:47-0400 Systolic blood pressure 128 mm[Hg] April Boyd MD Work Phone: [facility] 01-28-2022 08:22-0400 Diastolic blood pressure 67 mm[Hg] April Boyd Work Phone: [employer] Work Phone: 01-28-2022 08:22-0400 Systolic blood pressure 125 mm[Hg] April Boyd Work Phone: [employer] Work Phone: 01-28-2022 08:08-0400 Body height 182.88 cm April Boyd Work Phone: [employer] Work Phone: 01-28-2022 08:08-0400 Body mass index (BMI) [Ratio] 37.84 kg/m2 April Boyd Work Phone: [facility] [facility] Work Phone: 01-28-2022 08:08-0400 Body surface area Derived from formula 2.45 m2 April Boyd Work Phone: [facility] Work Phone: 01-28-2022 08:08-0400 Body weight 126.55 kg April Body Work Phone: [facility] Work Phone: 01-28-2022 08:08-0400 Diastolic blood pressure 84 mm[Hg] April Belchercel Work Phone: [facility] Work Phone: 01-28-2022 08:08-0400 Heart rate 62 /min April Boyd Work Phone: [facility] Work Phone: 01-28-2022 08:08-0400 SaO2% (BldA) [Mass fraction] 97 % April Boyd Work Phone: [facility] Work Phone: 01-28-2022 08:08-0400 Systolic blood pressure 148 mm[Hg] April Boyd Work Phone: [facility] Work Phone: 07-31-2021 09:03-0500 Body height 182.88 cm April Boyd Work Phone: [facility] Work Phone: 07-31-2021 09:03-0500 Body mass index (BMI) [Ratio] 37.43 kg/m2 April Boyd Work Phone: [facility] Work Phone: 07-31-2021 09:03-0500 Body surface area Derived from formula 2.44 m2 April Boyd Work Phone: [facility] Work Phone: 07-31-2021 09:03-0500 Body weight 125.19 kg April Boyd Work Phone: [facility] Work Phone: 07-31-2021 09:03-0500 Diastolic blood pressure 84 mm[Hg] April Belchercel Work Phone: [facility] Work Phone: 07-31-2021 09:03-0500 Systolic blood pressure 138 mm[Hg] April Belchercel Work Phone: [facility] Work Phone: 01-28-2021 11:27-0400 Body height 182.88 cm April Boyd Work Phone: [facility] Work Phone: 01-28-2021 11:27-0400 Body mass index (BMI) [Ratio] 36.62 kg/m2 April Boyd Work Phone: [facility] Work Phone: 01-28-2021 11:27-0400 Body surface area Derived from formula 2.42 m2 April Boyd Work Phone: [facility] Work Phone: 01-28-2021 11:27-0400 Body temperature 96.9 [degF] April Boyd Work Phone: [facility] Work Phone: 01-28-2021 11:27-0400 Body weight 122.47 kg April Boyd Work Phone: [facility] Work Phone: 01-28-2021 11:27-0400 Diastolic blood pressure 76 mm[Hg] April Belchercel Work Phone: [facility] Work Phone: 01-28-2021 11:27-0400 Heart rate 54 /min April Boyd Work Phone: [facility] Work Phone: 01-28-2021 11:27-0400 SaO2% (BldA) [Mass fraction] 97 % April Boyd Work Phone: [facility] Work Phone: 01-28-2021 11:27-0400 Systolic blood pressure 136 mm[Hg] April Boyd Work Phone: [facility] Work Phone: Encounters Encounter Date Encounter Type Care Provider Facility Start: 02-21-2025 ambulatory April Boyd Facilit :[facility] Start: 02-06-2025 End: 02-06-2025 Assay of hemosiderin, quant April Boyd MD Work Phone: [facility] Work Phone: Start: 02-06-2025 End: 02-06-2025 Patient encounter procedure April Boyd MD Work Phone: [facility] Comment on above: Routine general medi deion examination at health care facility (Primary Dx); Primary hypertension; Combined hyperlipidemia; Gastroesophageal reflux disease without esophagitis; Steatohepatitis; IGT (impaired glucose tolerance); Bronchitis Start: 02-06-2025 End: 02-06-2025 ambulatory [facility] Start: 02-06-2025 End: 02-06-2025 Encounter for general adult medical examination without abnormal findings [facility] Start: 01-05-2025 End: 01-05-2025 Patient encounter procedure Pasha Zabala AUTOMATIC EQUIPMENT TECHNICIAN-FAMILY COURT COUNSELLOR Work Phone: [facility] Comment on above: Acute bronchitis, un specified organism (Primary Dx); Abrasion Start: 01-05-2025 End: 01-05-2025 ambulatory [facility] Start: 08-09-2024 End: 08-09-2024 ambulatory [facility] Start: 08-09-2024 End: 08-09-2024 Office outpatient visit 25 minutes April Boyd MD Work Phone: [facility] Comment on above: Primary hypertension (Primary Dx); Combined hyperlipidemia; Gastroesophageal reflux disease without esophagitis; Steatohepatitis; IGT (impaired glucose tolerance); Obesity, morbid (Multi); Screening for prostate cancer Start: 08-01-2024 End: 08-01-2024 ambulatory APRIL BOYD [facility] Start: 02-07-2024 End: 02-07-2024 Assay of hemosiderin, quant April Boyd MD Work Phone: [facility] Work Phone: Start: 02-07-2024 End: 02-07-2024 Patient encounter procedure April Boyd MD Work Phone: [facility] Comment on above: Routine general medi deion examination at health care facility (Primary Dx); Primary hypertension; Combined hyperlipidemia; Gastroesophageal reflux disease without esophagitis; Steatohepatitis; IGT (impaired glucose tolerance); Obesity, morbid (Multi) Start: 01-31-2024 End: 01-31-2024 ambulatory APRIL BOYD [facility] Start: 08-02-2023 End: 08-02-2023 Office outpatient visit 25 minutes April Boyd MD Work Phone: [facility] Comment on above: IGT (impaired glucos e tolerance) (Primary Dx); Primary hypertension; Combined hyperlipidemia; Gastroesophageal reflux disease without esophagitis; Primary insomnia; Elevated LFTs; Steatohepatitis; Screening for prostate cancer Start: 04-13-[address] April Toth Facility:[id number] Start: 02-09-[address] April Toth Facility:[id number] Start: 01-26-2023 End: 01-26-2023 Assay of hemosiderin, quant April Boyd MD Work Phone: [facility] Work Phone: Start: 01-26-2023 End: 01-26-2023 Patient encounter procedure April Boyd MD Work Phone: [facility] Comment on above: Routine general medi deion examination at health care facility (Primary Dx); Primary hypertension; Combined hyperlipidemia; Gastroesophageal reflux disease without esophagitis; Primary insomnia; Elevated LFTs; Steatohepatitis Start: 07-31-[address] April Toth Facility:[id number] Start: 01-29-2022 Chart Update April Belcher samuel Work Phone: [facility] Work Phone: Start: 01-28-2022 Adv care pln/ no alt dcsn mkr docd or refusal April Jenna Boyd Work Phone: [facility] Work Phone: Start: 01-20-2022 Chart Update April Jenna Belcher samuel Work Phone: [facility] Work Phone: Start: 10-30-2021 AUDIT April Jenna Simi baker Work Phone: [facility] Work Phone: Start: 07-31-2021 Phys/qhp telephone evaluation 11-20 min April Boyd Work Phone: [facility] Work Phone: Start: 07-21-2021 Chart Update April Jenna Simi baker Work Phone: [facility] Work Phone: Start: 01-28-2021 Office outpatient vi sit 15 minutes April Boyd Work Phone: [facility] Work Phone: Start: 08-24-2020 End: 08-24-2020 Orders Only Amanda Perera Work Phone: [facility] [place] Start: 11-22-2019 End: 11-26-2019 Patient encounter procedure DAVE BRYANT [facility] Start: 11-22-2019 End: 11-22-2019 Office outpatient new 30 minutes Dave Bryant Work Phone: [facility] Comment on above: Primary osteoarthrit is of both knees (Primary Dx) Start: 10-23-2019 Patient encounter procedure April Boyd [facility] Work Phone: Start: 10-20-2018 Patient encounter procedure April Belchersamuel Facility:[facility] Start: 10-20-2018 End: 10-21-2018 Patient encounter procedure April Boyd Facility:[facility] Start: 2018 End: 09-30-2018 Patient encounter procedure April Boyd Facility:[facility] Start: 05-16-2018 End: 05-17-2018 Patient encounter procedure April Boyd Facility:[facility] Start: 04-07-2018 End: 04-08-2018 Patient encounter procedure April Boyd Facility:[facility] Start: 03-31-2018 End: 04-01-2018 Patient encounter procedure April Boyd Facility:[facility] Start: 03-25-2018 End: 03-26-2018 Patient encounter procedure April Boyd Facility:[facility] Start: 01-13-2018 End: 01-13-2018 Patient encounter procedure Miriam TerryJeff Facility:[facility] Start: 12-16-2017 Patient encounter procedure April Boyd [facility] Work Phone: Procedures Date Procedure Procedure Detail Performing Clinician Start: 01-30-2025 Lipid 1996 panel - Serum or Plasma Piyush Boyd MD Work Phone: Start: 01-31-2024 Lipid 1996 panel - Serum or Plasma Piyush Boyd MD Work Phone: Start: 01-15-2023 Lipid 1996 panel - Serum or Plasma Piyush Boyd MD Work Phone: Start: 10-23-2019 CBC W Auto Differential panel - Blood April Boyd Start: 10-23-2019 Comprehensive metabolic 2000 panel Piyush Boyd Start: 10-23-2019 Hemoglobin glycosylated a1c April baker Start: 10-23-2019 Lipid panel April Boyd Start: 10-23-2019 PSA screening April Boyd Start: 06-24-2015 Colonoscopy April Boyd MD Work Phone: Cataract surgery April Shelby Comment on above: 01/13/18; Colonoscopy April Boyd Comment on above: 06/24/15, WITH BIOPSY W/ POLYPECTOMY 09/03; Esophagogastroduodenoscopy Marc Boyd Comment on above: 06/24/15; Tooth extraction April Shelby Comment on above: 04/07/17; Plan of Treatment Date Care Activity Detail Author Start: 01-30-2030 Lipid panel Lipid Panel [facility] Start: 01-30-2029 Lipid panel Lipid Panel [facility] Start: 01-16-2028 Lipid panel Lipid Panel [facility] Start: 02-07-2026 Medicare Annual Well ness Visit Medicare Annual Wellness Visit (AWV) [facility] Start: 01-30-2026 Hemoglobin A1c measurement Diabetes: Hemoglobin A1C [facility] Start: 08-06-2025 End: 08-06-2025 Patient encounter procedure 08/06/2025 9:20 AM EST Office Visit [place] [address] [phone] April Boyd MD [address] [address] [facility] Start: 06-24-2025 Screening for malign ant neoplasm of colon [facility] Start: 03-19-2025 Influenza vaccination Influenza Vacc ine (#1) [facility] Start: 02-07-2025 Medicare Annual Well ness Visit Medicare Annual Wellness Visit (AWV) [facility] Start: 02-06-2025 End: 02-06-2026 Comprehensive metabolic 2000 panel - Serum or Plasma Comprehensive Metabolic Panel Lab Routine Steatohepatitis Expected: 02/06/2025 (Approximate), Expires: 02/06/2026 [facility] Work Phone: Comment on above: Expected: 02/06/2025 (Approximate), Expires: 02/06/2026 Start: 02-06-2025 End: 02-06-2026 Fibroscan (Liver Elastography) GI Fibroscan (Liver Elastography) GI GI Routine Steatohepatitis Expected: 02/06/2025, Expires: 02/06/2026 [facility] Work Phone: Comment on above: Expected: 02/06/2025 , Expires: 02/06/2026 Start: 02-06-2025 End: 02-06-2026 Hemoglobin A1c/Hemoglobin.total in Blood Hemoglobin A1C Lab Routine IGT (impaired glucose tolerance) Expected: 02/06/2025 (Approximate), Expires: 02/06/2026 [facility] Work Phone: Comment on above: Expected: 02/06/2025 (Approximate), Expires: 02/06/2026 Start: 02-06-2025 End: 02-06-2025 Patient encounter procedure 02/06/2025 9:20 AM EDT Office Visit [place] [address] [phone] April Boyd MD [address] [address] [facility] Start: 01-30-2025 Hemoglobin A1c measurement Diabetes: Hemoglobin A1C [facility] Start: 08-09-2024 End: 08-09-2025 CBC panel - Blood by Automated count CBC Lab Routine Primary hypertension Combined hyperlipidemia Steatohepatitis Expected: 08/09/2024 (Approximate), Expires: 08/09/2025 [facility] Work Phone: Comment on above: Expected: 08/09/2024 (Approximate), Expires: 08/09/2025 Start: 08-09-2024 End: 08-09-2025 Comprehensive metabolic 2000 panel - Serum or Plasma Comprehensive Metabolic Panel Lab Routine Primary hypertension Combined hyperlipidemia Steatohepatitis Expected: 08/09/2024 (Approximate), Expires: 08/09/2025 [facility] Work Phone: Comment on above: Expected: 08/09/2024 (Approximate), Expires: 08/09/2025 Start: 08-09-2024 End: 08-09-2025 Hemoglobin A1c/Hemoglobin.total in Blood Hemoglobin A1C Lab Routine IGT (impaired glucose tolerance) Expected: 08/09/2024 (Approximate), Expires: 08/09/2025 [facility] Work Phone: Comment on above: Expected: 08/09/2024 (Approximate), Expires: 08/09/2025 Start: 08-09-2024 End: 08-09-2025 Lipid 1996 panel - Serum or Plasma Lipid Panel Lab Routine Combined hyperlipidemia Expected: 08/09/2024 (Approximate), Expires: 08/09/2025 [facility] Work Phone: Comment on above: Expected: 08/09/2024 (Approximate), Expires: 08/09/2025 Start: 08-09-2024 End: 08-09-2025 Prostate specific Ag [Mass/volume] in Serum or Plasma Prostate Specific Antigen, Screen Lab Routine Screening for prostate cancer Expected: 08/09/2024 (Approximate), Expires: 08/09/2025 [facility] Work Phone: Comment on above: Expected: 08/09/2024 (Approximate), Expires: 08/09/2025 Start: 08-09-2024 End: 08-09-2024 Patient encounter procedure 08/09/2024 8:00 AM EST Office Visit [address] [phone] April Boyd MD [address] [place] [id number] [facility] Start: 08-02-2024 Hemoglobin A1c measurement Diabetes: Hemoglobin A1C [facility] Start: 03-19-2024 COVID-19 Vaccine ( season) COVID-19 Vaccine ( season) [facility] Start: 03-19-2024 Influenza vaccination Influenza Vacc ine (#1) [facility] Start: 02-07-2024 End: 02-06-2025 CBC panel - Blood by Automated count CBC Lab Routine Primary hypertension Steatohepatitis Expected: 02/07/2024 (Approximate), Expires: 02/06/2025 [facility] Work Phone: Comment on above: Expected: 02/07/2024 (Approximate), Expires: 02/06/2025 Start: 02-07-2024 End: 02-06-2025 Comprehensive metabolic 2000 panel - Serum or Plasma Comprehensive Metabolic Panel Lab Routine Primary hypertension Steatohepatitis Expected: 02/07/2024 (Approximate), Expires: 02/06/2025 [facility] Work Phone: Comment on above: Expected: 02/07/2024 (Approximate), Expires: 02/06/2025 Start: 02-07-2024 End: 02-07-2024 Patient encounter procedure 02/07/2024 8:40 AM EDT Office Visit [facility] [address] [place] [phone] April Boyd MD [address] [place] [address] [facility] Start: 01-31-2024 End: 08-02-2024 CBC panel - Blood by Automated count CBC Lab Routine Primary hypertension Combined hyperlipidemia Expected: 01/31/2024 (Approximate), Expires: 08/02/2024 [facility] Work Phone: Comment on above: Expected: 01/31/2024 (Approximate), Expires: 08/02/2024 Start: 01-31-2024 End: 08-02-2024 Comprehensive metabolic 2000 panel - Serum or Plasma Comprehensive metabolic panel Lab Routine Primary hypertension Combined hyperlipidemia Expected: 01/31/2024 (Approximate), Expires: 08/02/2024 [facility] Work Phone: Comment on above: Expected: 01/31/2024 (Approximate), Expires: 08/02/2024 Start: 01-31-2024 End: 08-02-2024 Hemoglobin A1c/Hemoglobin.total in Blood Hemoglobin A1c Lab Routine Elevated LFTs Expected: 01/31/2024 (Approximate), Expires: 08/02/2024 [facility] Work Phone: Comment on above: Expected: 01/31/2024 (Approximate), Expires: 08/02/2024 Start: 01-31-2024 End: 08-02-2024 Lipid 1996 panel - Serum or Plasma Lipid panel Lab Routine Combined hyperlipidemia Expected: 01/31/2024 (Approximate), Expires: 08/02/2024 [facility] Work Phone: Comment on above: Expected: 01/31/2024 (Approximate), Expires: 08/02/2024 Start: 01-31-2024 End: 08-02-2024 Prostate specific Ag [Mass/volume] in Serum or Plasma Prostate Spec.Ag,Screen Lab Routine Screening for prostate cancer Expected: 01/31/2024 (Approximate), Expires: 08/02/2024 [facility] Work Phone: Comment on above: Expected: 01/31/2024 (Approximate), Expires: 08/02/2024 Start: 01-28-2024 Medicare Annual Well ness Visit Medicare Annual Wellness Visit (AWV) [facility] Start: 01-16-2024 Hemoglobin A1c measurement Diabetes: Hemoglobin A1C [facility] Start: 10-08-2023 COVID-19 Vaccine (2022- season) COVID-19 Vaccine ( season) [facility] Start: 08-04-2023 COVID-19 Vaccine (5 - Moderna series) COVID-19 Vaccine (5 - Moderna series) [facility] Start: 03-19-2023 Influenza vaccination Influenza Vacc ine (#1) [facility] Start: 01-30-2023 Zoster Vaccines (2 of 2) Zoster Vacc malena (2 of 2) [facility] Start: 01-29-2023 Medicare Annual Well ness Visit Medicare Annual Wellness Visit (AWV) [facility] Start: 01-26-2023 End: 01-27-2024 CT Abdomen and Pelvis W contrast IV CT abdomen pelvis w IV contrast Imaging Routine Elevated LFTs Steatohepatitis Expected: 01/26/2023, Expires: 01/27/2024 [facility] Work Phone: Comment on above: Expected: 01/26/2023 , Expires: 01/27/2024 Start: 08-03-2022 EPV, Provider: April Boyd, Status: Pen, Time: 8:20 AM EPV, Provider: pAril Boyd, Status: Pen, Time: 8:20 AM [facility] Work Phone: Start: 07-31-2022 EPV, Provider: April Boyd, Status: Pen, Time: 8:40 AM EPV, Provider: April Boyd, Status: Pen, Time: 8:40 AM [facility] Work Phone: Start: 03-27-2022 COVID-19 Vaccine (5 - Booster for Moderna series) COVID-19 Vaccine (5 - Booster for Moderna series) [facility] Start: 01-28-2022 EPV, Provider: April Boyd, Status: Pen, Time: 8:00 AM EPV, Provider: April Boyd, Status: Pen, Time: 8:00 AM [facility] Work Phone: Start: 07-31-2021 EPV, Provider: April Boyd, Status: Pen, Time: 9:00 AM EPV, Provider: April Boyd, Status: Pen, Time: 9:00 AM [facility] Work Phone: Start: 03-19-2020 Influenza vaccinatio n given Sequential Influenza Vaccine (#1) [facility] Start: 05-09-2017 Pneumococcal vaccination Pneum ococcal Vaccine Age 65+ (2 of 2 - PCV13) [facility] Start: 08-14-2008 DTaP/Tdap/Td Vaccine s (2 - Td or Tdap) DTaP/Tdap/Td Vaccines (2 - Td or Tdap) [facility] Start: 08-14-2008 Tetanus vaccination Tetanus: Every 1 0yrs [facility] Start: 2007 Hepatitis B Vaccines (1 of 3 - Risk 3-dose series) Hepatitis B Vaccines (1 of 3 - Risk 3-dose series) [facility] Start: 09-28-1997 Administration of he rpes zoster vaccine Zoster Vaccines (1 of 2) [facility] Start: 09-28-1997 Screening for malign ant neoplasm of colon [facility] Start: 09-28-1966 Hepatitis A Vaccines (1 of 2 - Risk 2-dose series) Hepatitis A Vaccines (1 of 2 - Risk 2-dose series) [facility] Start: 09-28-1965 Hepatitis C antibody , confirmatory test Hepatitis C Screening [facility] Start: 09-28-1965 Hepatitis C screening Hepatitis C Sc jasmina [facility] Start: 1963 COVID-19 Vaccine (1 of 2) COVID-19 Vaccine (1 of 2) [facility] Start: 1959 Adolescent depressio n screening assessment Depression Screening (PHQ9) [facility] Start: 09-28-1950 History and physical examination, annual for health maintenance Wellness Visit [facility] Start: 1947 Depression screening using PHQ-9 (Patient Health Questionnaire 9) score Depression Screening (PHQ9) [facility] Start: 1947 Fall risk assessment Falls Risk Asse ssment [facility] Start: 1947 Hepatitis C antibody , confirmatory test Hepatitis C Screening [facility] Start: 1947 Medicare Annual Well ness Visit Medicare Annual Wellness Visit (AWV) [facility] Start: 1947 Prostate specific antigen measurement PSA Level [facility] Start: 1947 Screening for malign ant neoplasm of colon [facility] Immunizations Immunization Date Immunization Notes Care Provider Fa kendrick 04-14-2024 influenza, high dose seasonal, preservative-free Pasha Zabala AUTOMAT[employer] EQUIPMENT TECH[employer]ICIAN-[employer]ILY [employer] COUNSELLOR Work Phone: [facility] Work Phone: 04-14-2024 influenza virus vacc ine, unspecified formulation April Boyd MD Work Phone: [facility] Work Phone: 11-20-2023 RESPIRATORY SYNCYTIA L VIRUS (RSV), ELIGIBLE PTS, 0.5 ML (ABRYSVO) Pasha Zabala AUTOMATIC EQUIPMENT TECHNICIAN-FAMILY COURT COUNSELLOR Work Phone: [facility] Work Phone: 06-09-2023 Moderna COVID-19 vaccine, Fall 2022, 12 yeasrs and older (50mcg/0.5mL) April Boyd MD Work Phone: [facility] Work Phone: 04-17-2023 Flu vaccine, quadrivalent, high-dose, preservative free, age 65y+ (FLUZONE) April Boyd MD Work Phone: [facility] Work Phone: 04-17-2023 influenza virus vacc ine, unspecified formulation April Boyd MD Work Phone: [facility] Work Phone: 12-05-2022 zoster vaccine recombinant April Boyd MD Work Phone: [facility] Work Phone: 05-16-2022 Flu vaccine, quadrivalent, high-dose, preservative free, age 65y+ (FLUZONE) Pasha Vj AUTOMATIC EQUIPMENT TECHNICIAN-FAMILY COURT COUNSELLOR Work Phone: [facility] Work Phone: 05-16-2022 influenza virus vacc ine, unspecified formulation April Boyd MD Work Phone: [facility] Work Phone: 01-30-2022 Moderna SARS-CoV-2 Vaccination April Boyd MD Work Phone: [facility] 01-28-2022 pneumococcal conjuga te vaccine, 13 valent; Translations: [Prevnar 13 Intramuscular Suspension] April Boyd Work Phone: [facility] Work Phone: Comment on above: Series: 06-24-2021 Moderna COVID-19 Vac cine 100 MCG/0.5ML Intramuscular Suspension April Boyd Work Phone: [facility] 05-10-2021 Fluzone High-Dose Quadrivalent 0.7 ML Intramuscular Suspension Prefilled Syringe April Boyd Work Phone: [facility] 10-04-2020 Moderna COVID-19 Vac cine 100 MCG/0.5ML Intramuscular Suspension April Boyd Work Phone: [facility] Comment on above: Series: 09-06-2020 Moderna COVID-19 Vac cine 100 MCG/0.5ML Intramuscular Suspension April Boyd Work Phone: [facility] Comment on above: Series: 04-19-2020 influenza, seasonal, injectable April Boyd Work Phone: [facility] Work Phone: Comment on above: Series: 04-10-2019 influenza, seasonal, injectable April Boyd [facility] Work Phone: Comment on above: Series: 05-09-2016 pneumococcal polysaccharide vaccine, 23 valent April Boyd [facility] Work Phone: Comment on above: Series: 02-16-2013 pneumococcal polysaccharide vaccine, 23 valent April Boyd Work Phone: [facility] Work Phone: Comment on above: Series: 05-05-1999 pneumococcal polysaccharide vaccine, 23 valent April Boyd [facility] Work Phone: Comment on above: Series: 08-14-1998 tetanus toxoid, redu baljit diphtheria toxoid, and acellular pertussis vaccine, adsorbed April Boyd [facility] Work Phone: Comment on above: Series: Payers Date Payer Category Payer Self-pay 2018 Private Health Insurance 2017 Medicare 2017 Medicare [employer] MANAGED M EDICARE [employer] MCR ADVANTAGE CHOICE PPO xxxxxxxxx 2017-Present xxxxxxxxx [id number] 2017 Medicare [employer] MANAGED M EDICARE [employer]NA MCR ADVANTAGE CHOICE PPO [id number] 2017-Present [id number] 2017 Medicare (Managed Care) [employer] G OLD CHOICE Member Subscriber Plan / Payer (Effective 2017-Present) Name: Arian Freeman Relation to Subscriber: Self Name: Arian Freeman Payer ID: [id number] (NAIC) Type: Not on file Address: [place] [id number] 2017 Medicare [id number] 1945 Unknown [id number] [id number]. 2. 1945 Unknown [id number] 2.16.840.1.702427.3.579. 2. 1947 Unknown [id number] 2.16.840.1.090675.3.579. 2. 1947 Unknown [id number] 2.16.840.1.423493.3.579. 2. 1947 Unknown [id number] 2.16.840.1.321590.3.579. 2. 1947 Unknown [id number] 2.16.840.1.261756.3.579. 2. 1947 Unknown [id number] 2.16.840.1.899495.3.579. 2. 1947 Unknown [id number] 2.16.840.1.960093.3.579. 2. 1947 Unknown [id number] 2.16.840.1.594578.3.579. 2. 1947 Unknown [id number] 2.16.840.1.956765.3.579. 2.90 1947 Unknown [id number] 2.16.840.1.953912.3.579. 2.1069 1947 Unknown [id number] 2.16.840.1.194169.3.579. 2.356 1947 Unknown [id number] 2.16.840.1.305154.3.579. 2.356 1947 Unknown [id number] 2.16.840.1.177766.3.579. 2.1245 1947 Unknown [id number] 2.16.840.1.428225.3.579. 2.1245 1947 Unknown [id number] 2.16.840.1.503206.3.579. 2.1243 1947 Unknown [id number] 2.16.840.1.027220.3.579. 2.1244 1947 Unknown [id number] 2.16.840.1.002780.3.579. 2.1244 Unknown [employer] GOLD CHOICE Unknown [id number] [id number]. 2.462 Social History Date Type Detail Facility Start: 11-24-2019 End: 01-26-2023 Tobacco smoking status NHIS Never smoker [facility] Start: 11-24-2019 End: 02-06-2025 Alcohol intake Current drinker of alcohol (finding) [facility] Start: 11-23-2019 History SDOH Alcohol Frequency 3 [facility] Start: 11-23-2019 History SDOH Alcohol Std Drinks 1 [facility] Start: 1945 Sex Assigned At Not on file O [facility] Start: 01-16-2023 End: 08-09-2024 Exposure to SARS-CoV-2 (event) Not sure [facility] Start: 11-24-2019 End: 01-26-2023 Tobacco use and exposure Never used [facility] Start: 01-26-2023 End: 02-06-2025 Former smoker Former smoker [facility] Work Phone: Comment on above: WINE 1-2X/WEEK; Start: 01-26-2023 End: 02-06-2025 Tobacco use panel [facility] Work Phone: Start: 01-26-2023 Alcohol Comment rarely [facility] Work Phone: Start: 06-13-2022 Sex Male [facility] NEGATED: Highlighted row - - [facility] Work Phone: Functional Status Date Assessment Result Facility 02-06-2025 Patient Health Questionnaire 2 item (PHQ-2) [Reported] [facility] Work Phone: NEGATED: Highlighted row Functional performance Functional status health issues are not documented Disease [facility] Work Phone: Mental Status Date Assessment Result Facility NEGATED: Highlighted row Cognitive function [Interpretation] Cognitive status health issues are not documented Disease [facility] Work Phone: Clinical Notes 01-26-2023 to 02-06-2025 Assessment & Plan Note - April Boyd MD - 02/06/2025 9:20 AM EDTAssessment & Plan Note - April Boyd MD - 02/06/2025 9:20 AM EDTMkameron Boyd MD - 02/06/2025 9:20 AM EDT Note Date & Type Note Facility 02-06-2025 Evaluation + Plan note Associated Problem(s): HTN (hypertension) Orders: Follow Up In Primary Care Follow Up In Primary Care; Future [facility] Work Phone: 02-06-2025 Evaluation + Plan note Associated Problem(s): Combined hyperlipidemia Orders: Follow Up In Primary Care Follow Up In Primary Care; Future [facility] Work Phone: 02-06-2025 Evaluation + Plan note Associated Problem(s): GERD (gastroesophageal reflux disease) Orders: Follow Up In Primary Care Follow Up In Primary Care; Future [facility] Work Phone: 02-06-2025 Evaluation + Plan note Associated Problem(s): Steatohepatitis Orders: Follow Up In Primary Care Fibroscan (Liver Elastography) GI; Future Follow Up In Primary Care; Future Comprehensive Metabolic Panel; Future [facility] Work Phone: 02-06-2025 Evaluation + Plan note Associated Problem(s): IGT (impaired glucose tolerance) Orders: Follow Up In Primary Care Follow Up In Primary Care; Future Hemoglobin A1C; Future [facility] Work Phone: 02-06-2025 History of Presen t illness Narrative Subjective Reason for Visit: Arian Freeman is an 79 y.o. male here for a Medicare Wellness visit. Past Medical, Surgical, and Family History reviewed and updated in chart. Reviewed all medications by prescribing practitioner or clinical pharmacist (such as prescriptions, OTCs, herbal therapies and supplements) and documented in the medical record. HPI Had bronchitis in December, still with cough, had 3 yrs ago and cooughed for 3 months. LFTs are some better, and has been evaluated, get fibroscan Had fall at home, declines [facility] referral for Hep GERD-Takes PPI daily with no breakthrough symptoms. Reviewed dietary, caffeine, tobacco, alcohol, and NSAID avoidance. No dyspepsia, dysphagia, reflux, melena, or abdominal pain. HTN-Takes and tolerates meds without side effects. No alcohol. no tobacco. no exercise. low salt. Reviewed recommendation for 150 minutes of exercise per week including 2 days of weight training if over age 50 Hyperlipidemia- is on a statin and a prudent diet. IGT- 6.1 Patient Care Team: April Boyd MD as PCP - General (Family Medicine) April Boyd MD as PCP - [employer]age PCP Review of Systems General-no fatigue weight to within 10 pounds ENT no problems with vision swallowing Cardiac no chest pains palpitations change in exercise tolerance or capacity Pulmonary no cough shortness of breath GI no heartburn or abdominal pain Musculoskeletal no joint pains Objective Vitals: BP 124/74 Pulse 60 Wt 116 kg (255 lb) SpO2 97% BMI 34.58 kg/m Physical Exam General: Alert, No acute distress. Appears stated age Eye: Pupils are equal, round and reactive to light, Extraocular movements are intact, Normal conjunctiva. Neck: Supple, Non-tender, No carotid bruit, No jugular venous distention, No lymphadenopathy, No thyromegaly. Respiratory: Lungs are clear to auscultation, Respirations are non-labored, Breath sounds are equal. Cardiovascular: Normal rate, Regular rhythm, No murmur. Gastrointestinal: Soft, Non-tender, No organomegaly. No solid or pulsatile mass Integumentary: Warm, Dry. No concerning lesions on exposed areas Neurologic: Alert, Oriented. Gross and fine motor intact, CN 2-12 intact Psychiatric: Cooperative, Appropriate mood & affect. Assessment & Plan Primary hypertension Orders: Follow Up In Primary Care Follow Up In Primary Care; Future Combined hyperlipidemia Orders: Follow Up In Primary Care Follow Up In Primary Care; Future Gastroesophageal reflux disease without esophagitis Orders: Follow Up In Primary Care Follow Up In Primary Care; Future Steatohepatitis Orders: Follow Up In Primary Care Fibroscan (Liver Elastography) GI; Future Follow Up In Primary Care; Future Comprehensive Metabolic Panel; Future IGT (impaired glucose tolerance) Orders: Follow Up In Primary Care Follow Up In Primary Care; Future Hemoglobin A1C; Future Routine general medical examination at health care facility Orders: 1 Year Follow Up In Primary Care - Wellness Exam; Future Bronchitis Orders: predniSONE (Deltasone) 10 mg tablet; Take 4 tablets (40 mg) by mouth once daily for 5 days. documented in this encounter [facility] Work Phone: 02-06-2025 Miscellaneous Notes Associated Problem(s): HTN (hypertension) Orders: Follow Up In Primary Care Follow Up In Primary Care; Future Associated Problem(s): Combined hyperlipidemia Orders: Follow Up In Primary Care Follow Up In Primary Care; Future Associated Problem(s): GERD (gastroesophageal reflux disease) Orders: Follow Up In Primary Care Follow Up In Primary Care; Future Associated Problem(s): Steatohepatitis Orders: Follow Up In Primary Care Fibroscan (Liver Elastography) GI; Future Follow Up In Primary Care; Future Comprehensive Metabolic Panel; Future Associated Problem(s): IGT (impaired glucose tolerance) Orders: Follow Up In Primary Care Follow Up In Primary Care; Future Hemoglobin A1C; Future documented in this encounter [facility] Work Phone: 01-05-2025 History of Presen t illness Narrative [facility] Pasha Zabala, AUTOMATIC EQUIPMENT TECHNICIAN-FAMILY [employer] COUNSELLOR Visit Note - 01/05/2025 2:59 PM This note was generated with voice recognition software and may contain errors including spelling, grammar, syntax, and misrecognization of what was dictated. Patient: Arian Freeman, , 79 y.o., male PCP: April Boyd MD ----- ALLERGIES: Allergies[1] CURRENT MEDICATIONS: Current Outpatient Medications Medication Instructions aspirin 325 mg tablet 1 tablet, Daily azithromycin (Zithromax Z-Adan) 250 mg tablet Take 2 tablets by mouth at once on day 1, then 1 tablet once a day on days 2-5. Take with a meal. hydroCHLOROthiazide (HYDRODIURIL) 25 mg, oral, Daily mupirocin (Bactroban) 2 % ointment 1 Application, Topical, 3 times daily RT pantoprazole (PROTONIX) 40 mg, oral, Daily potassium chloride CR 10 mEq ER tablet 10 mEq, oral, Daily, Do not crush, chew, or split. simvastatin (ZOCOR) 40 mg, oral, Daily timolol (Timoptic) 0.5 % ophthalmic solution Administer into affected eye(s). vit C/E/cuperic/zinc/lutein (PRESERVISION LUTEIN ORAL) Take by mouth. ----- PAST MEDICAL HX: Problem List[2] SURGICAL HX: Surgical History[3] FAMILY HX: No pertinent history. SOCIAL HX: reports that he has never smoked. He has never used smokeless tobacco. . Recently returned from a cruise. ----- CHIEF COMPLAINT: Chief Complaint Patient presents with URI Cough/congestion, sinus drainage x 2 weeks Fall Rt knee pain, arm soreness after fall x 2 days ago HISTORY OF PRESENT ILLNESS: The history was obtained from patient. Wildrose is a 79 y.o. male, who presents with a chief complaint of a productive cough (white phlegm), chest congestion, sneezing, slight hoarse voice, nasal congestion (white mucus), and subjective fevers - patient unsure exactly when symptoms started - possibly ~2 weeks ago? Denies any fevers, body aches, ear pain, abdominal pain, chest pain, wheezing/shortness of breath, rashes, urinary symptoms, nausea/vomiting, and diarrhea. Denies any current lightheadedness or dizziness; reports he has ongoing issues (x years) with dizziness if he stands up too quickly, and he reports this led him to lose his balance and fall 2 days ago - reports these symptoms have not increased in frequency/severity from his baseline. Reports his PCP is aware and reports he has had full workup, without findings - reports they are monitoring symptoms at this time. Denies syncopal episodes, and denies hitting his head or LOC after the fall a few days ago - reports has abrasions on his knees and arms, but denies any swelling - reports just a little tender is all. No swelling in legs. Appetite is normal; is able to eat and drink fluids without difficulty; denies loss of sense of taste or smell. Reports respiratory symptoms have been persisting without much change since onset. Has been taking Nyquil and Dayquil without much relief; no other qiob-cvj-kbycodn medications or home remedies for symptom management. No known ill contacts but he did recently return from a cruise. Is up to date with COVID vaccine except has not received the most recent booster yet. Has received this season's influenza vaccine.. Last known COVID infection was in 2021. Is not a smoker. Reports he is up to date with his tetanus vaccine. REVIEW OF SYSTEMS: 10 systems reviewed negative with exception of history of present illness as listed above. TODAY'S VITALS: BP 132/82 (BP Location: Left arm, Patient Position: Sitting, BP Cuff Size: Large adult) Pulse 94 Temp 36.6 C (97.9 F) (Temporal) Resp 14 Ht 1.829 m (6') Wt 125 kg (275 lb) SpO2 96% BMI 37.30 kg/m PHYSICAL EXAMINATION: General: Mildly ill-appearing, well nourished male; alert and oriented; in no acute distress. Sitting comfortably on exam chair. Non-dyspneic. Eyes: Pupils equal, round and reactive to light. No conjunctival erythema; no scleral icterus. HENT: No frontal or maxillary sinus tenderness; + audible nasal congestion. Airway patent, TMs and ear canals clear/unremarkable bilaterally. Nasal mucosa mildly injected and edematous. Oral mucosa moist. Posterior pharynx mildly injected but without lesions or oropharyngeal exudate aside from PND. Uvula is midline. Managing oral secretions without difficulty. Neck: Supple. Mildly tender, mobile anterior cervical lymphadenopathy bilat. Trachea is midline. Respiratory: Respirations easy and unlabored, Breath sounds equal. Lungs are clear to auscultation; no wheezes, rhonchi, or rales; has good air movement throughout. + productive cough noted. Non-dyspneic with ambulation; able to maintain SpO2. Cardiovascular: Normal rate, Regular rhythm. Normal S1S2. No m/r/g. No peripheral edema. Gastrointestinal: Soft, non-tender, non-distended; no palpable masses or organomegaly. Bowel sounds normoactive. Musculoskeletal: Grossly normal; appropriate for age. Integumentary: [place], warm, dry. Has large, superficial abraded patch to R knee; has smaller superficial abrasions to L knee and elbows. Area on R knee noted to have mild surrounding erythema, with mild tenderness, but no edema. No other rashes or skin discoloration appreciated. Good skin turgor. Neurologic: Alert and oriented, no gross deficits. Cognition and Speech: Oriented, Speech clear and coherent. Psychiatric: Cooperative, Appropriate mood & affect. ----- Medical Decision Making LABORATORY or RADIOLOGICAL IMAGING ORDERS/RESULTS: None IMPRESSION/PLAN: Course: Worsening; stable 1. Acute bronchitis, unspecified organism (Primary) 2. Abrasion - azithromycin (Zithromax Z-Adan) 250 mg tablet; Take 2 tablets by mouth at once on day 1, then 1 tablet once a day on days 2-5. Take with a meal. Dispense: 6 tablet; Refill: 0 - mupirocin (Bactroban) 2 % ointment; Apply 1 Application topically 3 times a day for 10 days. Dispense: 15 g; Refill: 0 No red flags on exam today. Offered testing for COVID/influenza/RSV and CXR but patient requesting to defer. Symptoms consistent with acute bronchitis, as well as several superficial abrasions, but reviewed other potential etiologies. Due to severity and duration of respiratory symptoms, will begin treatment with Zithromax today; will also start topical mupirocin. Instructed to push fluids, rest, and to use appropriate over the counter medications as needed for management of symptoms - plain Mucinex may be helpful. Reviewed instructions for self-isolation and continued monitoring. Reviewed red flags to monitor for, counseled on potential adverse reactions of treatments, expectations for improvement in sxs, and advised to follow-up with primary care provider in 2-3 days if symptoms persist, or to seek care sooner if worsening or if any additional concerns/red flags develop. Should also continue close follow up with PCP re: ongoing, chronic dizziness, and should seek care immediately for any red flags in the meantime. Patient/ agreed with plan of care; questions were encouraged and answered. REYNALDO Oswald Advanced Practice Provider [facility] [1] Allergies Allergen Reactions Lisinopril Unknown [2] Patient Active Problem List Diagnosis Age-related macular degeneration, dry, both eyes Astigmatism Myopia Combined form of age-related cataract, left eye Combined form of age-related cataract, right eye Elevated LFTs GERD (gastroesophageal reflux disease) Global amnesia HTN (hypertension) Combined hyperlipidemia IGT (impaired glucose tolerance) Insomnia Open-angle glaucoma of left eye, mild stage Tubular adenoma of colon Steatohepatitis Seasonal allergic rhinitis due to pollen Obesity, morbid (Multi) [3] Past Surgical History: Procedure Laterality Date OTHER SURGICAL HISTORY 10/10/2019 Colonoscopy OTHER SURGICAL HISTORY 10/10/2019 Esophagogastroduodenoscopy OTHER SURGICAL HISTORY 10/10/2019 Tooth extraction OTHER SURGICAL HISTORY 10/10/2019 Cataract surgery documented in this encounter [facility] Work Phone: 08-09-2024 History of Presen t illness Narrative Subjective Patient ID: Jagjit Freeman is a 78 y.o. male who presents for Follow-up (6 MO FU ). HPI Since the last office visit there have been no interval operations, hospitalizations, important illnesses or injuries. HTN-Takes and tolerates meds without side effects. No alcohol. no tobacco. no exercise. low salt. Reviewed recommendation for 150 minutes of exercise per week including 2 days of weight training if over age 50 Hyperlipidemia- is on a statin and a prudent diet. GERD-Takes PPI daily with no breakthrough symptoms. Reviewed dietary, caffeine, tobacco, alcohol, and NSAID avoidance. No dyspepsia, dysphagia, reflux, melena, or abdominal pain. Elevated LFTs has seen hepa, labs reviewed. Do not find fibroscan, had ct. Review of Systems General-no fatigue weight to within 10 pounds ENT no problems with vision swallowing Cardiac no chest pains palpitations change in exercise tolerance or capacity Pulmonary no cough shortness of breath GI no heartburn or abdominal pain Musculoskeletal no joint pains Objective BP 132/72 Pulse 83 Ht 1.829 m (6') Wt 126 kg (277 lb) SpO2 98% BMI 37.57 kg/m Physical Exam General: Alert, No acute distress. Appears stated age Eye: Pupils are equal, round and reactive to light, Extraocular movements are intact, Normal conjunctiva. Neck: Supple, Non-tender, No carotid bruit, No jugular venous distention, No lymphadenopathy, No thyromegaly. Respiratory: Lungs are clear to auscultation, Respirations are non-labored, Breath sounds are equal. Cardiovascular: Normal rate, Regular rhythm, No murmur. Gastrointestinal: Soft, Non-tender, No organomegaly. No solid or pulsatile mass Integumentary: Warm, Dry. No concerning lesions on exposed areas Neurologic: Alert, Oriented. Gross and fine motor intact, CN 2-12 intact Psychiatric: Cooperative, Appropriate mood & affect. Assessment/Plan Problem List Items Addressed This Visit ICD-10-CM GERD (gastroesophageal reflux disease) K21.9 Relevant Medications pantoprazole (ProtoNix) 40 mg EC tablet Other Relevant Orders Follow Up In Primary Care HTN (hypertension) - Primary I10 Relevant Medications hydroCHLOROthiazide (HYDRODiuril) 25 mg tablet Other Relevant Orders Follow Up In Primary Care CBC Comprehensive Metabolic Panel Combined hyperlipidemia E78.2 Relevant Medications simvastatin (Zocor) 40 mg tablet Other Relevant Orders Follow Up In Primary Care CBC Comprehensive Metabolic Panel Lipid Panel IGT (impaired glucose tolerance) R73.02 Relevant Orders Follow Up In Primary Care Hemoglobin A1C Steatohepatitis K75.81 Relevant Orders Follow Up In Primary Care CBC Comprehensive Metabolic Panel Obesity, morbid (Multi) E66.01 Other Visit Diagnoses Codes Screening for prostate cancer Z12.5 Relevant Orders Prostate Specific Antigen, Screen Patient was identified as a fall risk. Risk prevention instructions provided. documented in this encounter [facility] Work Phone: 08-09-2024 Instructions April Boyd MD - 08/09/2024 8:00 AM EST Ways to Help Prevent Falls at Home Quick Tips ? Ask for help if you need it. Most people want to help! ? Get up slowly after sitting or laying down ? Wear a medical alert device or keep cell phone in your pocket ? Use night lights, especially areas near a bathroom ? Keep the items you use often within reach on a small stool or end table ? Use an assistive device such as walker or cane, as directed by provider/physical therapy ? Use a non-slip mat and grab bars in your bathroom. Look for home health sections for best options Other Areas to Focus On ? Exercise and nutrition: Regular exercise or taking a falls prevention class are great ways improve strength and balance. Don t forget to stay hydrated and bring a snack! ? Medicine side effects: Some medicines can make you sleepy or dizzy, which could cause a fall. Ask your healthcare provider about the side effects your medicines could cause. Be sure to let them know if you take any vitamins or supplements as well. ? Tripping hazards: Remove items you could trip on, such as loose mats, rugs, cords, and clutter. Wear closed toe shoes with rubber soles. ? Health and wellness: Get regular checkups with your healthcare provider, plus routine vision and hearing screenings. Talk with your healthcare provider about: o Your medicines and the possible side effects - bring them in a bag if that is easier! o Problems with balance or feeling dizzy o Ways to promote bone health, such as Vitamin D and calcium supplements o Questions or concerns about falling *Ask your healthcare team if you have questions [facility] 2021 documented in this encounter [facility] Work Phone: 02-07-2024 History of Presen t illness Narrative Subjective Reason for Visit: Arian Freeman is an 78 y.o. male here for a Medicare Wellness visit. Past Medical, Surgical, and Family History reviewed and updated in chart. Reviewed all medications by prescribing practitioner or clinical pharmacist (such as prescriptions, OTCs, herbal therapies and supplements) and documented in the medical record. HPI Since the last office visit there have been no interval operations, hospitalizations, important illnesses or injuries. No tob, rare etoh, no illicit drugs, some exercise HTN-Takes and tolerates meds without side effects. rare alcohol. no tobacco. no exercise. low salt. Reviewed recommendation for 150 minutes of exercise per week including 2 days of weight training if over age 50, home readings <140/<90 Hyperlipidemia- is on a statin and a prudent diet. GERD-Takes PPI daily with no breakthrough symptoms. Reviewed dietary, caffeine, tobacco, alcohol, and NSAID avoidance. No dyspepsia, dysphagia, reflux, melena, or abdominal pain. Steatohep- stable LFTs REJI- trial zyrtec vscont use claritin Patient Care Team: April Boyd MD as PCP - General April Boyd MD as PCP - [employer] PCP Review of Systems General-no fatigue weight to within 10 pounds ENT no problems with vision swallowing Cardiac no chest pains palpitations change in exercise tolerance or capacity Pulmonary no cough shortness of breath GI no heartburn or abdominal pain Musculoskeletal no joint pains Objective Vitals: BP 140/80 Pulse 57 Ht 1.829 m (6') Wt 124 kg (273 lb 4.8 oz) SpO2 96% BMI 37.07 kg/m Physical Exam General: Alert, No acute distress. Appears stated age Eye: Pupils are equal, round and reactive to light, Extraocular movements are intact, Normal conjunctiva. Neck: Supple, Non-tender, No carotid bruit, No jugular venous distention, No lymphadenopathy, No thyromegaly. Respiratory: Lungs are clear to auscultation, Respirations are non-labored, Breath sounds are equal. Cardiovascular: Normal rate, Regular rhythm, No murmur. Gastrointestinal: Soft, Non-tender, No organomegaly. No solid or pulsatile mass Integumentary: Warm, Dry. No concerning lesions on exposed areas Neurologic: Alert, Oriented. Gross and fine motor intact, CN 2-12 intact Psychiatric: Cooperative, Appropriate mood & affect. Assessment/Plan Problem List Items Addressed This Visit ICD-10-CM GERD (gastroesophageal reflux disease) K21.9 Relevant Orders Follow Up In Primary Care HTN (hypertension) I10 Relevant Orders Follow Up In Primary Care CBC Comprehensive Metabolic Panel Combined hyperlipidemia E78.2 Relevant Orders Follow Up In Primary Care IGT (impaired glucose tolerance) R73.02 Relevant Orders Follow Up In Primary Care Steatohepatitis K75.81 Relevant Orders Follow Up In Primary Care CBC Comprehensive Metabolic Panel Obesity, morbid (Multi) E66.01 Relevant Orders Follow Up In Primary Care Other Visit Diagnoses Codes Routine general medical examination at health care facility - Primary Z00.00 documented in this encounter [facility] Work Phone: 08-02-2023 History of Presen t illness Narrative Subjective Patient ID: Jagjit Freeman is a 77 y.o. male who presents for Follow-up (6 mo). HPI Since the last office visit there have been no interval operations, hospitalizations, important illnesses or injuries. HTN-Takes and tolerates meds without side effects. No alcohol. no tobacco. no exercise. low salt. Reviewed recommendation for 150 minutes of exercise per week including 2 days of weight training if over age 50 Hyperlipidemia- on statin and prudent diet. GERD-Takes PPI daily with no breakthrough symptoms. Reviewed dietary, caffeine, tobacco, alcohol, and NSAID avoidance. No dyspepsia, dysphagia, reflux, melena, or abdominal pain. Reviewed that his hepatology lab was unremarkable but he never got an appointment with Dr. Vázquez. Will get labs today. Imaging did not show anything problematic. IGT continue to monitor Review of Systems General-no fatigue weight to within 10 pounds ENT no problems with vision swallowing Cardiac no chest pains palpitations change in exercise tolerance or capacity Pulmonary no cough shortness of breath GI no heartburn or abdominal pain Musculoskeletal no joint pains Objective BP 136/80 Pulse 61 Ht 1.829 m (6') Wt 128 kg (283 lb 1.6 oz) SpO2 97% BMI 38.40 kg/m Physical Exam General: Alert, No acute distress. Appears stated age Eye: Pupils are equal, round and reactive to light, Extraocular movements are intact, Normal conjunctiva. Neck: Supple, Non-tender, No carotid bruit, No jugular venous distention, No lymphadenopathy, No thyromegaly. Respiratory: Lungs are clear to auscultation, Respirations are non-labored, Breath sounds are equal. Cardiovascular: Normal rate, Regular rhythm, No murmur. Gastrointestinal: Soft, Non-tender, No organomegaly. No solid or pulsatile mass Integumentary: Warm, Dry. No concerning lesions on exposed areas Neurologic: Alert, Oriented. Gross and fine motor intact, CN 2-12 intact Psychiatric: Cooperative, Appropriate mood & affect. Assessment/Plan Problem List Items Addressed This Visit ICD-10-CM Elevated LFTs R79.89 Relevant Orders Hemoglobin A1C Hemoglobin A1c (Completed) Hemoglobin A1c GERD (gastroesophageal reflux disease) K21.9 Relevant Medications pantoprazole (ProtoNix) 40 mg EC tablet Other Relevant Orders Follow Up In Primary Care - Established HTN (hypertension) I10 Relevant Medications hydroCHLOROthiazide (HYDRODiuril) 25 mg tablet potassium chloride CR 10 mEq ER tablet Other Relevant Orders Follow Up In Primary Care - Established Comprehensive Metabolic Panel Lipid Panel Comprehensive metabolic panel (Completed) Comprehensive metabolic panel CBC Combined hyperlipidemia E78.2 Relevant Medications simvastatin (Zocor) 40 mg tablet Other Relevant Orders Follow Up In Primary Care - Established Comprehensive Metabolic Panel Lipid Panel Comprehensive metabolic panel (Completed) Comprehensive metabolic panel Lipid panel CBC IGT (impaired glucose tolerance) - Primary R73.02 Relevant Orders Follow Up In Primary Care - Established Insomnia G47.00 Steatohepatitis K75.81 Relevant Orders Follow Up In Primary Care - Established Other Visit Diagnoses Codes Screening for prostate cancer Z12.5 Relevant Orders Prostate Specific Antigen, Screen Prostate Spec.Ag,Screen Patient was identified as a fall risk. Risk prevention instructions provided. documented in this encounter [facility] Work Phone: 08-02-2023 Instructions April Boyd MD - 08/02/2023 8:40 AM EST Ways to Help Prevent Falls at Home Quick Tips ? Ask for help if you need it. Most people want to help! ? Get up slowly after sitting or laying down ? Wear a medical alert device or keep cell phone in your pocket ? Use night lights, especially areas near a bathroom ? Keep the items you use often within reach on a small stool or end table ? Use an assistive device such as walker or cane, as directed by provider/physical therapy ? Use a non-slip mat and grab bars in your bathroom. Look for home health sections for best options Other Areas to Focus On ? Exercise and nutrition: Regular exercise or taking a falls prevention class are great ways improve strength and balance. Don t forget to stay hydrated and bring a snack! ? Medicine side effects: Some medicines can make you sleepy or dizzy, which could cause a fall. Ask your healthcare provider about the side effects your medicines could cause. Be sure to let them know if you take any vitamins or supplements as well. ? Tripping hazards: Remove items you could trip on, such as loose mats, rugs, cords, and clutter. Wear closed toe shoes with rubber soles. ? Health and wellness: Get regular checkups with your healthcare provider, plus routine vision and hearing screenings. Talk with your healthcare provider about: o Your medicines and the possible side effects - bring them in a bag if that is easier! o Problems with balance or feeling dizzy o Ways to promote bone health, such as Vitamin D and calcium supplements o Questions or concerns about falling *Ask your healthcare team if you have questions [facility], 2021 documented in this encounter [facility] Work Phone: 01-26-2023 History of Presen t illness Narrative Subjective Reason for Visit: Arian Freeman is an 77 y.o. male here for a Medicare Wellness visit. Past Medical, Surgical, and Family History reviewed and updated in chart. Reviewed all medications by prescribing practitioner or clinical pharmacist (such as prescriptions, OTCs, herbal therapies and supplements) and documented in the medical record. HPI Since the last office visit there have been no interval operations, hospitalizations, important illnesses or injuries. HTN-Takes and tolerates meds without side effects. No alcohol. no tobacco. no exercise. low salt. Reviewed recommendation for 150 minutes of exercise per week including 2 days of weight training if over age 50 Hyperlipidemia- is on a statin and a prudent diet. GERD-Takes PPI daily with no breakthrough symptoms. Reviewed dietary, caffeine, tobacco, alcohol, and NSAID avoidance. No dyspepsia, dysphagia, reflux, melena, or abdominal pain. Insomnia- talking and tolerating meds, SL- nil, DARVIN-0, no hangover, restorative sleep. Desires to continue med. Uses otc sleep aid. No ambien. 7/yr I have personally reviewed the OARRS report for the above patient. This report is scanned into the electronic medical record. I have considered the risks of abuse, dependence, addiction, and diversion. I believe that it is clinically appropriate for the above patient to be prescribed this medication. Was coughing and takes otc allergy and cough better. LFTs up, rare etoh, us in 23 with enlarged and fatty liver, has gallstone andn no sx., nbili nl. Patient Care Team: April Boyd MD as PCP - General April Boyd MD as PCP - [employer] PCP Review of Systems General-no fatigue weight to within 10 pounds ENT no problems with vision swallowing Cardiac no chest pains palpitations change in exercise tolerance or capacity Pulmonary no cough shortness of breath GI no heartburn or abdominal pain Musculoskeletal no joint pains Objective Vitals: BP 128/70 Pulse 63 Ht 1.829 m (6') Wt 124 kg (273 lb 8 oz) SpO2 95% BMI 37.09 kg/m Physical Exam General: Alert, No acute distress. Appears stated age Eye: Pupils are equal, round and reactive to light, Extraocular movements are intact, Normal conjunctiva. Neck: Supple, Non-tender, No carotid bruit, No jugular venous distention, No lymphadenopathy, No thyromegaly. Respiratory: Lungs are clear to auscultation, Respirations are non-labored, Breath sounds are equal. Cardiovascular: Normal rate, Regular rhythm, No murmur. Gastrointestinal: Soft, Non-tender, No organomegaly. No solid or pulsatile mass Integumentary: Warm, Dry. No concerning lesions on exposed areas Neurologic: Alert, Oriented. Gross and fine motor intact, CN 2-12 intact Psychiatric: Cooperative, Appropriate mood & affect. Assessment/Plan Problem List Items Addressed This Visit Cardiac and Vasculature HTN (hypertension) Relevant Orders Follow Up In Primary Care Combined hyperlipidemia Relevant Orders Follow Up In Primary Care Gastrointestinal and Abdominal Elevated LFTs Relevant Orders CT abdomen pelvis w IV contrast Referral to Gastroenterology Follow Up In Primary Care GERD (gastroesophageal reflux disease) Relevant Orders Follow Up In Primary Care Steatohepatitis Relevant Orders CT abdomen pelvis w IV contrast Referral to Gastroenterology Follow Up In Primary Care Sleep Insomnia Relevant Orders Follow Up In Primary Care Other Visit Diagnoses Routine general medical examination at health care facility - Primary documented in this encounter [facility] Work Phone: Evaluation note Diagnosis Routine general medical examination at health care facility- Primary Routine general medical examination at a [facility] care [facility] Primary hypertension Unspecified essential hypertension Combined hyperlipidemia Other and unspecified hyperlipidemia Gastroesophageal reflux disease without esophagitis Esophageal reflux Primary insomnia Persistent disorder of initiating or maintaining sleep Elevated LFTs Other abnormal blood chemistry Steatohepatitis Other chronic nonalcoholic liver disease documented in this encounter [facility] Work Phone: Evaluation note* Diagnosis IGT (impaired glucose tolerance)- Primary Impaired glucose tolerance test Primary hypertension Unspecified essential hypertension Combined hyperlipidemia Other and unspecified hyperlipidemia Gastroesophageal reflux disease without esophagitis Esophageal reflux Primary insomnia Persistent disorder of initiating or maintaining sleep Elevated LFTs Other abnormal blood chemistry Steatohepatitis Other chronic nonalcoholic liver disease Screening for prostate cancer Special screening for malignant neoplasm of prostate documented in this encounter [facility] Work Phone: Evaluation note* Diagnosis Routine general medical examination at [facility] care facility- Primary Routine general medical examination at a [facility] care facility Primary hypertension Unspecified essential hypertension Combined hyperlipidemia Other and unspecified hyperlipidemia Gastroesophageal reflux disease without esophagitis Esophageal reflux Steatohepatitis Other chronic nonalcoholic liver disease IGT (impaired glucose tolerance) Impaired glucose tolerance test Obesity, morbid (Multi) Morbid obesity documented in this encounter [facility] Work Phone: Evaluation note* Diagnosis Primary hypertension- Primary Unspecified essential hypertension Combined hyperlipidemia Other and unspecified hyperlipidemia Gastroesophageal reflux disease without esophagitis Esophageal reflux Steatohepatitis Other chronic nonalcoholic liver disease IGT (impaired glucose tolerance) Impaired glucose tolerance test Obesity, morbid (Multi) Morbid obesity Screening for prostate cancer Special screening for malignant neoplasm of prostate documented in this encounter [facility] Work Phone: Evaluation note* Diagnosis Acute bronchitis, unspecified organism- Primary Abrasion Abrasion or friction burn of other, multiple, and unspecified sites, without mention of infection documented in this encounter [facility] Work Phone: Evaluation note* Diagnosis Routine general medical examination at health care facility- Primary Routine general medical examination at a health care facility Primary hypertension Unspecified essential hypertension Combined hyperlipidemia Other and unspecified hyperlipidemia Gastroesophageal reflux disease without esophagitis Esophageal reflux Steatohepatitis Other chronic nonalcoholic liver disease IGT (impaired glucose tolerance) Impaired glucose tolerance test Bronchitis Bronchitis, not specified as acute or chronic documented in this encounter [facility] Work Phone: History of Present illness Narrative* asks for 7 ambien for sleep when travel * Since the last office visit there have been no interval operations, hospitalizations, important illnesses or injuries. * HTN-Takes and tolerates meds without side effects. No alcohol. no tobacco. no exercise. low salt. Reviewed recommendation for 150 minutes of exercise per week including 2 days of weight training if over age 50 * GERD-Takes PPI daily with no breakthrough symptoms. Reviewed dietary, caffeine, tobacco, alcohol, and NSAID avoidance. * Hyperlipidemia- is on statin and a prudent diet. * lft were 109/87, now 62/54 and down 11#, us wpoth hepa betty;lly and fatty infiltration [facility] Work Phone: History of Present illness Narrative* Since the last office visit there have been no interval operations, hospitalizations, important illnesses or injuries. * HTN-Takes and tolerates meds without side effects. rare alcohol. no tobacco. little exercise. low salt. Reviewed recommendation for 150 minutes of exercise per week including 2 days of weight training if over age 50 * Hyperlipidemia- is on statin and a prudent diet. * insomnia- uses only for travel * GERD-Takes PPI daily with no breakthrough symptoms. Reviewed dietary, caffeine, tobacco, alcohol, and NSAID avoidance. * LFT-some improvement. Has lost 5 pounds. Encouraged further weight loss. [facility] Work Phone: History of Present illness Narrative* The patient is being seen for the subsequent annual wellness visit. * Past Medical, Surgical and Family History: reviewed and updated in chart. * Interval History: Patient has not been hospitalized previously. * Medications and Supplements: Review of all medications by a prescribing practitioner or clinical pharmacist (such as prescriptions, OTCs, herbal therapies and supplements) documented in the medical record. * No, the patient is not using opioids. * Health Risk Assessment:. Paper HRA completed by patient and scanned into chart. * Patient Self Assessment of Health Status: good. * Tobacco use: Non-User * Alcohol use: Non-User, As noted in social history * Illicit drug use: Non-User * Current diet: well balanced diet. * Exercise Frequency: infrequently. * Depression/Suicide Screening: . * During the past 2 weeks, the patient has not felt down, depressed or hopeless. * During the past 2 weeks, the patient has not felt little interest or pleasure in doing things. * Hearing Impairment: none. * Cognitive Impairment: No cognitive impairment observed. * Bathing: performs independently. * Dressing: performs independently. * Walking: performs independently. * Toileting: performs independently. * Feeding: performs independently. * Personal Hygiene: performs independently. * Bowels: continent. * Bladder: continent. * Managing Finances: performs independently. * Shopping: performs independently. * Managing Medications: performs independently. * Housework / Basic Home Maintenance: performs independently. * Handling Transportation: performs independently. * Preparing Meals: performs independently. * Using the Telephone/ Communication Devices: performs independently. * Falls Risk Screening:. ARIAN has not fallen in the last 6 months. * Home safety risk factors: none and no handrails on the stairs. * Advance directives:. Advance Care Planning discussed and documented in the medical record, patient did not wish or was not able to name a surrogate decision maker or provide an advance care plan. Patient has living will. Patient has healthcare POA. * Since the last office visit there have been no interval operations, hospitalizations, important illnesses or injuries. * lfts normalized * K is down, now replaced * HTN-Takes and tolerates meds without side effects. No alcohol. no tobacco. little exercise. low salt. Reviewed recommendation for 150 minutes of exercise per week including 2 days of weight training if over age 50 * home readings <130/<80 125/67 * Hyperlipidemia- is on statin and a prudent diet. * weight up a co 9 lbs this year * asks for zolpidem for travel needs * GERD-Takes PPI daily with no breakthrough symptoms. Reviewed dietary, caffeine, tobacco, alcohol, and NSAID avoidance. * remote hx polyp but last scope neg and recc 10 yr [facility] Work Phone: reason for referral (narrative)* Consultation (Routine) - Authorized Specialty Diagnoses / Procedures Referred By Contac t Referred To Contact Primary Care Diagnoses Primary hypertension Combined hyperlipidemia Gastroesophageal reflux disease without esophagitis Primary insomnia Elevated LFTs Steatohepatitis Procedures Follow Up In Primary Care April Boyd MD [address] [place], [place] [id number] Referral ID Status Reason Start Date Expiration Date V isits Requested Visits Authorized [id number] Authorized 01/26/2023 07/25/2023 1 1 * Consultation (Routine) - Authorized Specialty Diagnoses / Procedures Referred By Contac t Referred To Contact Gastroenterology Diagnoses Elevated LFTs Steatohepatitis Procedures MI OFFICE/OUTPATIENT NEW HIGH MDM 60-74 MINUTES April Boyd MD [address] [place] [address] Referral ID Status Reason Start Date Expiration Date Visits Requested Visits Authorized [id number] Authorized Specialty Services Required 01/26/2023 07/25/2023 1 1 * Imaging (Routine) - Authorized Specialty Diagnoses / Procedures Referred By Contac t Referred To Contact Radiology Diagnoses Elevated LFTs Steatohepatitis Procedures CT abdomen pelvis w IV contrast April Boyd MD [address] [place] [address] Referral ID Status Reason Start Date Expiration Date Visits Requested Visits Authorized [id number] Authorized Perform Procedure 01/26/2023 07/25/2023 1 1 [facility] Work Phone: Reason for referral (narrative)* Consultation (Routine) - Authorized Specialty Diagnoses / Procedures Referred By Contac t Referred To Contact Primary Care Diagnoses Primary hypertension Combined hyperlipidemia Gastroesophageal reflux disease without esophagitis Steatohepatitis IGT (impaired glucose tolerance) Procedures Follow Up In Primary Care - Established April Boyd MD [address] [place] [address] Referral ID Status Reason Start Date Expiration Date V isits Requested Visits Authorized [id number] Authorized 08/02/2023 08/01/2024 1 1 [facility] Work Phone: Reuyys for referral (narrative)* Consultation (Routine) - Authorized Specialty Diagnoses / Procedures Referred By Latha t Referred To Contact Primary Care Diagnoses Primary hypertension Combined hyperlipidemia Gastroesophageal reflux disease without esophagitis Steatohepatitis IGT (impaired glucose tolerance) Obesity, morbid (Multi) Procedures Follow Up In Primary Care April Boyd MD [address] [id number] Referral ID Status Reason Start Date Expiration Date V isits Requested Visits Authorized [id number] Authorized 02/07/2024 02/06/2025 1 1 [facility] Work Phone: Summary Purpose Family History No Family History Records FoundUnknown Family Member Name Dates Details Family history of diabetes marc hawkins(V18.0, Z83.3) Comments:Other Status:Active Family history of cerebrovas cular accident (CVA)(V17.1, Z82.3) Comments:Other Status:Active Grandmother Name Dates Details Family history of diabetes marc hawkins(V18.0, Z83.3) Status:Active aunt Name Dates Details Family history of diabetes marc hawkins(V18.0, Z83.3) Status:Active Mother Name Dates Details Family history of AMD (age r elated macular degeneration)(362.50, H35.30) Status:Active Family history of cerebrovas cular accident (CVA)(V17.1, Z82.3) Status:Active Family history of Cardiac de fibrillator in place(V45.02, Z95.810) Status:Active Father Name Dates Details Family history of gastroesop hageal reflux disease(V18.59, Z83.79) Status:Active Sister Name Dates Details Family history of gastroesop hageal reflux disease(V18.59, Z83.79) Status:Active Brother Name Dates Details Family history of gastroesop hageal reflux disease(V18.59, Z83.79) Status:Active Unknown Family Member Name Dates Details AMD (age related macular deg eneration): Mother Status:Active Family history of diabetes m ellitus: Maternal Grandmother, Maternal Aunt, Other(V18.0, Z83.3) Status:Active Family history of cerebrovas cular accident (CVA): Mother, Other(V17.1, Z82.3) Status:Active Cardiac defibrillator in lion ce: Mother Status:Active Family history of gastroesop hageal reflux disease: Father, Sister, Brother(V18.59, Z83.79) Comments:BROTHERS X 2; Status:Active Unknown Family Member Name Dates Details AMD (age related macular deg eneration): Mother Status:Active Family history of diabetes m ellitus: Maternal Grandmother, Maternal Aunt, Other(V18.0, Z83.3) Status:Active Family history of cerebrovas cular accident (CVA): Mother, Other(V17.1, Z82.3) Status:Active Cardiac defibrillator in lion ce: Mother Status:Active Family history of gastroesop hageal reflux disease: Father, Sister, Brother(V18.59, Z83.79) Comments:BROTHERS X 2; Status:Active Unknown Family Member Name Dates Details AMD (age related macular deg eneration): Mother Status:Active Family history of diabetes m ellitus: Maternal Grandmother, Maternal Aunt, Other(V18.0, Z83.3) Status:Active Family history of cerebrovas cular accident (CVA): Mother, Other(V17.1, Z82.3) Status:Active Cardiac defibrillator in lion ce: Mother Status:Active Family history of gastroesop hageal reflux disease: Father, Sister, Brother(V18.59, Z83.79) Comments:BROTHERS X 2; Status:Active Unknown Family Member Name Dates Details AMD (age related macular deg eneration): Mother Status:Active Family history of diabetes m ellitus: Maternal Grandmother, Maternal Aunt, Other(V18.0, Z83.3) Status:Active Family history of cerebrovas cular accident (CVA): Mother, Other(V17.1, Z82.3) Status:Active Cardiac defibrillator in lion ce: Mother Status:Active Family history of gastroesop hageal reflux disease: Father, Sister, Brother(V18.59, Z83.79) Comments:BROTHERS X 2; Status:Active Unknown Family Member Name Dates Details AMD (age related macular deg eneration): Mother Status:Active Family history of diabetes m ellitus: Maternal Grandmother, Maternal Aunt, Other(V18.0, Z83.3) Status:Active Family history of cerebrovas cular accident (CVA): Mother, Other(V17.1, Z82.3) Status:Active Family history of gastroesop hageal reflux disease: Father, Sister, Brother(V18.59, Z83.79) Comments:BROTHERS X 2; Status:Active Cardiac defibrillator in lion ce: Mother Status:Active Unknown Family Member Name Dates Details AMD (age related macular deg eneration): Mother Status:Active Family history of diabetes m ellitus: Maternal Grandmother, Maternal Aunt, Other(V18.0, Z83.3) Status:Active Family history of cerebrovas cular accident (CVA): Mother, Other(V17.1, Z82.3) Status:Active Cardiac defibrillator in lion ce: Mother Status:Active Family history of gastroesop hageal reflux disease: Father, Sister, Brother(V18.59, Z83.79) Comments:BROTHERS X 2; Status:Active Unknown Family Member Name Dates Details Family history of diabetes m ellitus: Maternal Grandmother, Maternal Aunt, Other(V18.0, Z83.3) Status:Active Family history of cerebrovas cular accident (CVA): Mother, Other(V17.1, Z82.3) Status:Active Cardiac defibrillator in lion ce: Mother Status:Active Family history of gastroesop hageal reflux disease: Father, Sister, Brother(V18.59, Z83.79) Comments:BROTHERS X 2; Status:Active AMD (age related macular deg eneration): Mother Status:Active Advance Directives No Advanced Directives Records FoundDocuments on File Type Date Recorded Patient [employer] Expl anation Advance Directives and Living Will History of Present Illness * Dave Bryant, FAMILY COURT COUNSELLOR - 11/23/2019 12:40 PM EDT Arian Jara Seble 1945 CC: 74 y.o. is a he with left knee pain. HPI: Knee Pain: Patient presents to the office with complaints a pain in his left knee. He states that the pain isn't constant, just comes and goes. He describes it as a burning pain the runs along the outside of his kneecap. He states that when he gets the pain, he elevates the knee and it goes away. He did have an injury to his knee about 30 years ago and thinks, that maybe that attributed to this pain. He denies every taking any type of pain reliever for it because it just didn't hurt that bad. He has had this pain on and off for the past year. It is not inhibiting him from doing things he enjoys. He is still able to do things around the house as normal. He does state that after a long period of sitting, both knees are sore and stiff. He did have an injury to his lower back where he broke a vertebrae many years ago but never needed any surgical intervention. He does get sciatica occasionally in the the left leg as well. PMH: Allergies Allergen Reactions Lisinopril Current Outpatient Medications: pantoprazole (PROTONIX) 40 MG tablet, , Disp: , Rfl: simvastatin (ZOCOR) 40 MG tablet, , Disp: , Rfl: timolol (TIMOPTIC) 0.5 % ophthalmic solution, , Disp: , Rfl: Past Medical History: Diagnosis Date High cholesterol Past Surgical History: Procedure Laterality Date CATARACT EXTRACTION, BILATERAL Social History Socioeconomic History Marital status: Spouse name: Not on file Number of children: Not on file Years of education: Not on file Highest education level: Not on file Occupational History Employer: retired Social Needs Financial resource strain: Not on file Food insecurity Worry: Not on file Inability: Not on file Transportation needs Medical: Not on file Non-medical: Not on file Tobacco Use Smoking status: Never Smoker Smokeless tobacco: Never Used Substance and Sexual Activity Alcohol use: Yes Frequency: 2-4 times a month Drinks per session: 1 or 2 Binge frequency: Never Drug use: Never Sexual activity: Not on file Lifestyle Physical activity Days per week: Not on file Minutes per session: Not on file Stress: Not on file Relationships Social connections Talks on phone: Not on file Gets together: Not on file Attends anabaptist service: Not on file Active member of club or organization: Not on file Attends meetings of clubs or organizations: Not on file Relationship status: Not on file Other Topics Concern Not on file Social History Narrative Not on file The patient's past medical history, surgical history, social history, family history, medications and allergies were reviewed with the patient today and are available in the chart for further review. ROS: Review of Systems Constitutional: Negative for activity change and fatigue. HENT: Negative for congestion, hearing loss and trouble swallowing. Eyes: Negative for visual disturbance. Respiratory: Negative for chest tightness and shortness of breath. Cardiovascular: Negative for chest pain and palpitations. Gastrointestinal: Negative for abdominal pain, diarrhea, nausea and vomiting. Endocrine: Negative for polydipsia, polyphagia and polyuria. Genitourinary: Negative for decreased urine volume, difficulty urinating and hematuria. Musculoskeletal: Positive for arthralgias. Negative for joint swelling and myalgias. Skin: Negative for color change, rash and wound. Allergic/Immunologic: Negative for immunocompromised state. Neurological: Negative for dizziness, weakness, light-headedness and numbness. Hematological: Does not bruise/bleed easily. Psychiatric/Behavioral: Negative for confusion and sleep disturbance. The patient is not nervous/anxious. PE: Physical Exam Constitutional: He is oriented to person, place, and time. He appears well- developed and well-nourished. HENT: Head: Normocephalic. Eyes: Pupils are equal, round, and reactive to light. Neck: Normal range of motion. Neck supple. Cardiovascular: Normal rate and regular rhythm. Pulmonary/Chest: Effort normal and breath sounds normal. Abdominal: Soft. Bowel sounds are normal. Musculoskeletal: Normal range of motion. General: Tenderness present. Left knee: He exhibits no effusion. Tenderness found. Lateral joint line and LCL tenderness noted. Neurological: He is alert and oriented to person, place, and time. Skin: Skin is warm and dry. ORTHO: Left Knee Exam Tenderness The patient is experiencing tenderness in the LCL and lateral joint line. Range of Motion The patient has normal left knee ROM. Tests Soniya: Medial - negative Lateral - negative Varus: negative Valgus: negative Reta: Anterior - negative Drawer: Anterior - negative Posterior - negative Other Erythema: absent Scars: absent Sensation: normal Pulse: present Swelling: none Effusion: no effusion present Imaging: B/L Knee Right knee: No acute fracture. Moderate medial knee and lateral knee compartment joint space narrowing with mild marginal osteophytosis. Mild marginal osteophytosis of the patellofemoral compartment.No significant joint effusion. Left knee: No acute fracture. Severe medial knee compartment joint space narrowing with near [id number] appearance, subchondral sclerosis, and mild marginal osteophytosis. Mild lateral knee and patellofemoral compartment marginal osteophytosis. No significant joint effusion. Assessment/Plan: After examination and reviewing of the patient x-ray images, we discussed the treatment options for osteoarthritis of the knees. At this time, the patient denies any difficulty in continuing the activities he enjoys, just wanted to know what shape his knees are in. He is content with continuing on with how things are. He states that if the pain gets worse he will return to the office. I explained that this pain does sound like it could be stemming from the lumbar back and that I would be happy to see him back for further evaluation of the lumbar spine.The patient verbalizes understanding and is in agreement with the treatment plan. I will be happy to see him back as needed. Diagnosis: Problem List Items Addressed This Visit None Follow Up: No follow-ups on file. Dave Bryant CNP documented in this encounter Assessments Diagnosis Primary osteoarthritis of both knees Chief Complaint 3 MO HL LFTS GERD HTN IGT CK REV LABS6 MO FU INSOMNIA. REV LABS6 MO FU. REV LABS Additional Source Comments (unrecognized sect ion and content) No Status Records FoundNo Status Records FoundNo Status Records FoundNo Status Records FoundNo Status Records FoundNo Status Records FoundNo Status Records FoundNo Status Records FoundNo Status Records FoundNo Status Records Found INFORMATION SOURCE (unrecogn ized section and content) DATE CREATED AUTHOR 10/22/2018 [facility] DATE CREATED AUTHOR AUTHOR'S ORGANIZ ATION 12/02/2019 [facility] DATE CREATED AUTHOR AUTHOR'S ORGANIZ ATION 02/10/2023 [facility] DATE CREATED AUTHOR AUTHOR'S ORGANIZ ATION 04/21/2023 [facility] DATE CREATED AUTHOR AUTHOR'S ORGANIZ ATION 04/21/2023 [facility] DATE CREATED AUTHOR AUTHOR'S ORGANIZ ATION 08/07/2024 [facility] DATE CREATED AUTHOR AUTHOR'S ORGANIZ ATION 01/08/2025 [facility] DATE CREATED AUTHOR AUTHOR'S ORGANIZ ATION 02/04/2025 [facility] DATE CREATED AUTHOR AUTHOR'S ORGANIZ ATION 02/10/2025 [facility] DATE CREATED AUTHOR AUTHOR'S ORGANIZ ATION 02/15/2025 [facility] Reason for Visit (unrecogniz ed section and content) Reason Comments Medicare Annual Wellness Visit Subsequen t 6 mo fu rev labs Reason Comments Follow-up 6 mo Specialty Diagnoses / Procedures Referred By Contac t Referred To Contact Primary Care Diagnoses Primary hypertension Combined hyperlipidemia Gastroesophageal reflux disease without esophagitis Primary insomnia Elevated LFTs Steatohepatitis Procedures Follow Up In Primary Care April Boyd MD [address] [place] [address] Referral ID Status Reason Start Date Expiration Date Visits Re quested Visits Authorized [id number] Closed 01/26/2023 07/25/2023 1 1 Reason Comments Medicare Annual Wellness Visit Subsequen t Rev 6 mo labs Specialty Diagnoses / Procedures Referred By Contac t Referred To Contact Primary Care Diagnoses Primary hypertension Combined hyperlipidemia Gastroesophageal reflux disease without esophagitis Steatohepatitis IGT (impaired glucose tolerance) Procedures Follow Up In Primary Care - Established April Boyd MD [address] [place] [address] Referral ID Status Reason Start Date Expiration Date V isits Requested Visits Authorized [id number] Authorized 08/02/2023 08/01/2024 1 1 Reason Comments Follow-up 6 MO FU Specialty Diagnoses / Procedures Referred By Contalyssa hollis Referred To Contact Primary Care Diagnoses Primary hypertension Combined hyperlipidemia Gastroesophageal reflux disease without esophagitis Steatohepatitis IGT (impaired glucose tolerance) Obesity, morbid (Multi) Procedures Follow Up In Primary Care April Boyd MD Phone: tel: fax: Referral ID Status Reason Start Date Expiration Date V isits Requested Visits Authorized [id number] Authorized 02/07/2024 02/06/2025 1 1 Reason Comments URI Cough/congestion, si nus drainage x 2 weeks Fall Rt knee pain, arm so reness after fall x 2 days ago Reason Comments Medicare Annual Wellness Visit Subsequen t Rev 6 mo labs Specialty Diagnoses / Procedures Referred By Latha hollis Referred To Contact Primary Care Diagnoses Primary hypertension Combined hyperlipidemia Gastroesophageal reflux disease without esophagitis Steatohepatitis IGT (impaired glucose tolerance) Procedures Follow Up In Primary Care April Boyd MD [facility] [address] [address] Phone: tel: fax: Referral ID Status Reason Start Date Expiration Date V isits Requested Visits Authorized [id number] Authorized 08/09/2024 08/09/2025 1 1 Care Teams (unrecognized sec tion and content) Vascular Technologist Sonographer Relationship Specialty Start Date End Date April Boyd MD [address] [phone] PCP - General 12/16/17 April Boyd MD [address] [phone] PCP - [employer] PCP 07/19/21 Vascular Technologist Sonographer Relationship Specialty Start Date End Date April Boyd MD [address], [place] [phone] PCP - General 12/16/17 April Boyd MD [address] [place] [address] PCP - [employer] PCP 07/19/21 Vascular Technologist Sonographer Relationship Specialty Start Date End Date April Boyd MD [address] [facility] [place] [address] PCP - General 12/16/17 April Boyd MD [address] [facility] [place] [address] PCP - [employer] PCP 07/19/21 Vascular Technologist Sonographer Relationship Specialty Start Date End Date April Boyd MD [address] [place] [address] PCP - [employer] PCP 07/19/21 April Boyd MD [address] [place] [address] PCP - General Family Medicine 08/09/24 Vascular Technologist Sonographer Relationship Specialty Start Date End Date April Boyd MD [address] [place] [phone] PCP - [employer]age PCP 07/19/21 April Boyd MD [address] [place] [address] PCP - General Family Medicine 08/09/24 Vascular Technologist Sonographer Relationship Specialty Start Date End Date April Boyd MD [address] [place] [address] PCP - [employer]age PCP 07/19/21 April Boyd MD [address] [place] [address] PCP - General Family Medicine 08/09/24 FOR RECORDS PERTAINING TO PATIENTS WHO ARE OR HAVE BEEN ENROLLED IN A CHEMICAL DEPENDENCY/SUBSTANCEABUSE PROGRAM, SOME INFORMATION MAY BE OMITTED. This clinical summary was aggregated from multiple sources. Caution should be exercised in using it in the provision of clinical care. This summary normalizes information from multiple sources, and as a consequence, information in this document may materially change the coding, format and clinical context of patient data. In addition, data may be omitted in some cases. CLINICAL DECISIONS SHOULD BE BASED ON THE PRIMARY CLINICAL RECORDS. [employer] [facility] provides no warranty or guarantee of the accuracy or completeness of information in this document.
--- NOTE | 2025-02-21 07:31 | US_ITS ---
PROCEDURE: ABD LIMITED W/ ELASTOGRAPHY REASON FOR EXAM: STEATOHEPATITIS COMPARISON: None. TECHNIQUE: Right upper quadrant abdominal ultrasound. Lori ElastQ Imaging shear wave elastography for non-invasive assessment of liver tissue stiffness. Lori EPIQ Elite. FINDINGS: LIVER: Size: Enlarged (hepatomegaly) Length: 18.2 cm Echotexture: Diffusely echogenic suggesting fatty infiltration Contour: Normal Lesions: None identified Elastography: EQI Med: 10.4 kPa EQI Med Renato: 1.86 m/s IQR/Med: 20.5 %* GALLBLADDER: Solitary gallstone measuring 7 mm x 7 mm x 8 mm. Slightly thickened gallbladder wall measuring 4 mm. COMMON BILE DUCT: Normal measuring 6 . PANCREAS: Normal Visualized portions of the right kidney are unremarkable. No right upper quadrant ascites. US/ABD Limited w/ Elastography IMPRESSION: MODERATE TO SEVERE HEPATIC FIBROSIS Hepatomegaly and fatty infiltration of the liver. Reference Values: SRU <1.37 m/s (5.7kPa): No to mild fibrosis 1.37 m/s - 2.2 m/s: Moderate to severe fibrosis >2.2 m/s (15kPa): Significant fibrosis / cirrhosis METAVIR Score F2 or higher: 1.34 m/s (5.7kPa) F3 or higher: 1.55 m/s (7.3kPa) F4: 1.80 m/s (10kPa) * If the IQR/Med is >30%, the variance in the measurements is a large and the a ccuracy of the measurement may be in question. Reading Location: [facility]
== END | disposition home or self-care (01) ==
PROVIDERS: PCP Family Medicine; Referring Provider Family Medicine; Visit Provider Family Medicine
DX: K75.81 Nonalcoholic steatohepatitis (NASH) (principal)
CPT/HCPCS: 76705; 76981